=== PATIENT | female | born 1955 | race Caucasian/White ===

== ENCOUNTER → 2017-10-06 14:26 | Outpatient (CLI) | payer OTHER, SELFPAY ==
--- NOTE | 2017-10-06 | DI.US.S_ITS ---
PROCEDURE: US ABDOMEN COMPLETE INDICATIONS: ABNORMAL LIVER FUNCTION TESTS TECHNIQUE: Real-time scanning was performed of the abdominal and retroperitoneal organs, with image documentation. COMPARISON: [facility], CT, ABDOMEN/PELVIS WITH CONTRAST, 01/16/2017, 14:03. FINDINGS: Liver: Liver is diffusely increased in echogenicity. No focal hepatic abnormalities identified. Normal hepatic size. Focal fatty sparing seen within the medial aspect of the posterior left hepatic lobe. Gallbladder: No gallstones identified. Normal gallbladder wall. No pericholecystic fluid. Negative sonographic Shabazz sign. Biliary ducts: Intrahepatic bile ducts are non-dilated. Extrahepatic bile duct caliber measures 7.0 mm. Normal is 6-7 mm or less in diameter, or 10 mm or less post-cholecystectomy. Pancreas: Visualized portions of the pancreas are sonographically normal. Spleen: Spleen is normal in size and homogeneous in echotexture. Kidneys: Kidneys are normal in size and echotexture. Right kidney measures 10.8 cm long; left kidney measures 12.1 cm long. No hydronephrosis or nephrolithiasis. No solid masses. Aorta: 3.3 cm descending abdominal aortic aneurysm not significantly from prior CT scan. Iliacs: Proximal common iliac arteries are normal in caliber at less than 2.5 cm. IVC: Intrahepatic inferior vena cava is patent. Miscellaneous: No free abdominal fluid. IMPRESSION: 1. Increased hepatic echogenicity noted possibly related to hepatic steatosis but other sources of hepatocellular disease cannot be excluded. Recommend clinical correlation. 2. Distal abdominal aortic aneurysm measuring up to 3.3 cm not significantly changed. Dictated by: Cornel BBAIN Interpreted: Jacquelyn Jane MD on 10/06/2017 at 16:08 Approved by: Pacheco Oliver M.D. on 10/06/2017 at 16:23
== END ==
PROVIDERS: PCP Family Medicine; Visit Provider Family Medicine
DX: R79.89 Other specified abnormal findings of blood chemistry (principal); I71.4 Abdominal aortic aneurysm, without rupture
CPT/HCPCS: 76700

== ENCOUNTER → 2017-12-22 14:52 | Outpatient (CLI) | payer OTHER, SELFPAY ==
--- NOTE | 2017-12-22 | DI.MG.S_ITS ---
BILATERAL DIGITAL SCREENING MAMMOGRAM 3D/2D WITH CAD: 12/22/2017 CLINICAL: Routine screening. Comparison is made to exams dated: 03/03/2015 mammogram - [facility], 06/20/2012 mammogram, and 05/24/2010 mammogram - [facility]. The tissue of both breasts is heterogeneously dense. This may lower the sensitivity of mammography. Current study was also evaluated with a Computer Aided Detection (CAD) system. There is a focal asymmetry in the right breast at 11 o'clock middle depth. No other significant masses, calcifications, or other findings are seen in either breast. IMPRESSION: INCOMPLETE: NEEDS ADDITIONAL IMAGING EVALUATION The focal asymmetry in the right breast is indeterminate. Additional views with possible ultrasound are recommended. This exam was interpreted at Station ID: [id number]. NOTE: For mammograms, a report in lay terms will be sent to the patient. Approximately 15% of breast malignancies will not be visualized mammographically. In the management of a palpable breast mass, a negative mammogram must not discourage biopsy of a clinically suspicious lesion. Electronically Signed By: Kym caballero/jo:12/23/2017 09:52:59 letter sent: Additional Imaging Needed ACR BI-RADS Category 0: Incomplete 3340F
== END ==
PROVIDERS: PCP Family Medicine; Visit Provider Family Medicine
DX: Z12.31 Encounter for screening mammogram for malignant neoplasm of breast (principal)
CPT/HCPCS: 77063; 77067

== ENCOUNTER → 2018-01-11 14:44 | Outpatient (CLI) | payer OTHER, SELFPAY ==
--- NOTE | 2018-01-11 | DI.US.S_ITS ---
LIMITED ULTRASOUND OF RIGHT BREAST: 01/11/2018 CLINICAL: Patient returns today to evaluate an asymmetry in the right breast, which resolved with additional diagnostic mammogram views. Comparison is made to exams dated: 01/11/2018 mammogram, 12/22/2017 mammogram, and 03/03/2015 mammogram - [facility]. Real-time and Doppler ultrasound of the right breast upper outer quadrant were performed. Griffith scale images of the real-time examination were reviewed. No underlying breast mass or abnormality is identified. There is no ultrasound correlate for the previously noted focal asymmetry in the right breast at 11 o'clock middle depth seen on comparison screening mammograms, which also resolved on additional diagnostic views performed earlier today. IMPRESSION: NEGATIVE There is no sonographic evidence of malignancy in the imaged portions of the right breast. Return to annual screening mammography is recommended. The patient is advised to monitor her breasts and to return sooner for re-evaluation should she feel anything grow or change. This exam was interpreted at Station ID: [id number]. Electronically Signed By: Henry Em M.D. ecl/:01/11/2018 19:23:42 letter sent: Normal Exam Ultrasound BI-RADS: 1 Negative
--- NOTE | 2018-01-11 | DI.MG.S_ITS ---
UNILATERAL RIGHT DIGITAL DIAGNOSTIC MAMMOGRAM 3D/2D WITH ADDITIONAL VIEWS: 01/11/2018 CLINICAL: Additional evaluation requested from prior study. Comparison is made to exams dated: 03/03/2015 mammogram - [facility], 06/20/2012 mammogram - [facility], and 12/22/2017 mammogram - [facility]. The tissue of right breast is heterogeneously dense. This may lower the sensitivity of mammography. Previously noted focal asymmetry in the right breast at 11 o'clock middle depth seen on comparison screening mammogram resolves with additional views and likely represented superimposition of benign anatomic tissues. No other significant masses, calcifications, or other findings are seen in the breast. IMPRESSION: INCOMPLETE: NEEDS ADDITIONAL IMAGING EVALUATION Previously noted focal asymmetry in the right breast at 11 o'clock middle depth seen on comparison screening mammogram resolves with additional views and likely represented superimposition of benign anatomic tissues. A targeted ultrasound is recommended and will be performed immediately following this exam. This exam was interpreted at Station ID: [id number]. NOTE: For mammograms, a report in lay terms will be sent to the patient. Approximately 15% of breast malignancies will not be visualized mammographically. In the management of a palpable breast mass, a negative mammogram must not discourage biopsy of a clinically suspicious lesion. Electronically Signed By: Henry Em M.D. ecl/:01/11/2018 15:17:13 letter sent: Additional Imaging Needed ACR BI-RADS Category 0: Incomplete 3340F
== END ==
PROVIDERS: PCP Family Medicine; Visit Provider Family Medicine
DX: R92.8 Other abnormal and inconclusive findings on diagnostic imaging of breast (principal)
CPT/HCPCS: 76642; 77065; G0279

== ENCOUNTER → 2019-04-09 11:45 | Outpatient (CLI) | payer OTHER, SELFPAY ==
[2019-04-09 13:50] LABS: Alanine Aminotransferase 23 IU/L (<35); Albumin 4.9 g/dL (3.5-5.0); Albumin Globulin Ratio 1.6 (1.0-2.8); Alkaline Phosphatase 113 U/L (38-126); Aspartate Aminotransferase 31 IU/L (14-36); Bilirubin Total 0.7 mg/dL (0.2-1.3); Bilirubin Unconjugated 0.5 mg/dL (0.0-1.1); Blood Urea Nitrogen 15 mg/dL (7-17); Calcium 10.5 mg/dL (8.4-10.2); Carbon Dioxide 28 mmol/L (22-32); Chloride 98 mmol/L (98-107); Estimated Glomerular Filt Rate > 60.0 mL/min (>60); Globulin 3.1 g/dL (1.7-4.1); Glucose 96 mg/dL (80-110); HEMOLYSIS < 15 (0-50); Potassium 5.2 mmol/L (3.4-5.1); Sodium 139 mmol/L (137-145)
== END ==
PROVIDERS: PCP Student in an Organized Health Care Education/Training Program; Referring Provider Student in an Organized Health Care Education/Training Program; Visit Provider Student in an Organized Health Care Education/Training Program
DX: K76.0 Fatty (change of) liver, not elsewhere classified (principal); I10 Essential (primary) hypertension
CPT/HCPCS: 36415; 80048; 80076

== ENCOUNTER → 2019-08-08 10:10 | Outpatient (CLI) | payer OTHER, SELFPAY ==
[2019-08-08 11:50] LABS: BUN Creatinine Ratio 21.1 (6-22); Blood Urea Nitrogen 12 mg/dL (7-17); Calcium 10.2 mg/dL (8.4-10.2); Carbon Dioxide 32 mmol/L (22-32); Chloride 96 mmol/L (98-107); Cholesterol 186 mg/dL (140-199); Estimated Glomerular Filt Rate > 60.0 mL/min (>60); Glucose 95 mg/dL (80-110); HDL Cholesterol 91 mg/dL (40-60); HEMOLYSIS < 15 (0-50); LDL Cholesterol Calculated 80 mg/dL (<100); Potassium 4.3 mmol/L (3.4-5.1); Sodium 134 mmol/L (137-145); Triglycerides 75 mg/dL (35-150)
[2019-08-08 12:13] LABS: TSH w/ Reflex to FT4 1.54 uIU/mL (0.47-4.68)
[2019-08-08 12:35] LABS: Vitamin B12 535 pg/mL (239-931)
[2019-08-08 16:17] LABS: Vitamin D 25 Hydroxy (D3) 13.6 ng/mL (30.0-100.0)
== END ==
PROVIDERS: PCP Student in an Organized Health Care Education/Training Program; Referring Provider Student in an Organized Health Care Education/Training Program; Visit Provider Student in an Organized Health Care Education/Training Program
DX: Z78.0 Asymptomatic menopausal state (principal); Z91.89 Other specified personal risk factors, not elsewhere classified; I10 Essential (primary) hypertension; R53.83 Other fatigue; T68.XXXA Hypothermia, initial encounter; E78.5 Hyperlipidemia, unspecified
CPT/HCPCS: 36415; 80048; 80061; 82306; 82607; 84443

== ENCOUNTER → 2019-08-16 07:54 | Outpatient (CLI) | payer OTHER, SELFPAY ==
--- NOTE | 2019-08-16 08:03 | DI.ECHO.S_ITS ---
Echocardiogram Report + + :Name: ONEIL DAVALOS Study Date: 08/16/2019 Height: 66 in : :[facility] Weight: 146 lb : : Gender: Female BSA: 1.7 m2 : :: 1955 Age: 64 yrs BP: 125/70 mmHg: :Reason For Study: ABNL EKG : : Performed By: Lorenzo Fabian : :Referring: DERRICK GLOVER : + + Interpretation Summary The left ventricle is normal in size. Left ventricular systolic function is normal without focal wall motion abnormalities. The ejection fraction is estimated to be 60-65%. Diastolic parameters suggest a relaxation abnormality of the left ventricle, consistent with probable normal filling pressures. The right ventricle is normal in size and function. Pulmonary artery pressures cannot be estimated because of the lack of a measurable TR jet velocity. The left atrium is moderately dilated. Right atrial size is normal. There is no significant valvular heart disease. The aortic root is normal size. Procedure: A two-dimensional transthoracic echocardiogram with color flow and Doppler was performed. The study quality was technically adequate. There is no prior echocardiogram noted for this patient. The patient was in normal sinus rhythm during the exam. Left Ventricle: The left ventricle is normal in size. There is normal left ventricular wall thickness. Left ventricular systolic function is normal without focal wall motion abnormalities. The ejection fraction is estimated to be 60-65%. Diastolic parameters suggest a relaxation abnormality of the left ventricle, consistent with probable normal filling pressures. Right Ventricle: The right ventricle is normal in size and function. Atria: The left atrium is moderately dilated. Right atrial size is normal. The interatrial septum is intact with no evidence for an atrial septal defect. Mitral Valve: The mitral valve is normal in structure and function. There is trace mitral regurgitation. Aortic Valve: The aortic valve is trileaflet. The aortic valve is mildly calcified. The aortic valve opens well. There is trace aortic regurgitation. Tricuspid Valve: The tricuspid valve is normal in structure and function. There is a trace or physiologic amount of tricuspid regurgitation. Pulmonary artery pressures cannot be estimated because of the lack of a measurable TR jet velocity. Pulmonic Valve: The pulmonic valve is normal in structure and function. There is no pulmonic valvular regurgitation. There is no significant valvular heart disease. Great Vessels: The aortic root is normal size. The dimensions of the ascending aorta are normal. The pulmonary artery is normal size. The IVC is of normal diameter and collapses greater than 50% with a sniff. This suggests a low right atrial pressure of 3 mm Hg. Pericardium/ Pleura There is no pericardial effusion. There is no pleural effusion. MMode/2D Measurements & Calculations LVIDd: 4.3 cm LVOT diam: 1.9 cm LVIDs: 2.2 cm Ao root diam: 2.6 cm FS: 49.2 % Aortic Jxn: 2.3 cm EPSS: 0.24 cm asc Aorta Diam: 3.0 cm IVSd: 0.90 cm Ao Arch Diam (Prox Trans): 2.5 cm LVPWd: 0.91 cm LV combs. diameter/BSA (cm/m^2): 2.4 LV sys. diameter/BSA (cm/m^2): 1.2 LA dimension: 3.8 cm RA long axis: 4.8 cm LA A2 area: 22.9 cm2 RA area: 16.7 cm2 LA A4 area: 21.3 cm2 RA vol: 49.3 ml LA length (vol): 5.4 cm RA : 28.2 ml/m2 LA vol: 76.4 ml IVC diam: 1.6 cm LA vol index: 43.7 ml/m2 Doppler Measurements & Calculations Ao V2 max: 153.0 cm/sec LVOT Max Yadiel: 123.8 cm/sec Ao V2 mean: 115.3 cm/sec LV V1 max P.1 mmHg Ao max P.4 mmHg LV V1 VTI: 30.1 cm Ao mean P.7 mmHg JEREMIAS(I,D): 2.3 cm2 Ao V2 VTI: 35.1 cm JEREMIAS(V,D): 2.2 cm2 sev ratio: 0.86 JEREMIAS indexed to BSA (cm^2/m^2): 1.3 MV E max yadiel: 74.0 cm/sec PA V2 max: 103.4 cm/sec MV A max yadiel: 87.4 cm/sec PA V2 mean: 75.3 cm/sec MV E/A: 0.85 PA mean P.5 mmHg Med Peak E' Yadiel: 6.0 cm/sec PA pr(Accel): 55.0 mmHg E/E' med: 12.3 Lat Peak E' Yadiel: 7.6 cm/sec E/E' lat: 9.8 E/e' average: 11.0 MV dec time: 0.17 sec SV(LVOT): 82.4 ml Reading Physician:07:07 PM
== END ==
PROVIDERS: PCP Student in an Organized Health Care Education/Training Program; Referring Provider Student in an Organized Health Care Education/Training Program; Visit Provider Student in an Organized Health Care Education/Training Program
DX: R94.31 Abnormal electrocardiogram [ECG] [EKG] (principal); I10 Essential (primary) hypertension
CPT/HCPCS: 93306

== ENCOUNTER → 2019-10-22 15:12 | Outpatient (CLI) | payer OTHER, SELFPAY ==
--- NOTE | 2019-10-22 15:35 | DI.MG.S_ITS ---
Patient Name: ONEIL DAVALOS date: 1955 Sex: F Attending Physician: Nika Indications: Date: 10/22/2019 15:22 At the request of: DERRICK GLOVER Procedure: MM screening mammo BI BILATERAL DIGITAL SCREENING MAMMOGRAM 3D/2D WITH CAD: 10/22/2019 CLINICAL: Routine screening. Comparison is made to exams dated: 01/11/2018 mammogram, 12/22/2017 mammogram, 03/03/2015 mammogram - [facility], and 06/20/2012 mammogram - [facility]. The tissue of both breasts is heterogeneously dense. This may lower the sensitivity of mammography. Current study was also evaluated with a Computer Aided Detection (CAD) system. There are benign calcifications in both breasts. No significant masses, calcifications, or other findings are seen in either breast. There has been no significant interval change. IMPRESSION: BENIGN There is no mammographic evidence of malignancy. A 1 year screening mammogram is recommended. This exam was interpreted at Station ID: [id number]. NOTE: For mammograms, a report in lay terms will be sent to the patient. Approximately 15% of breast malignancies will not be visualized mammographically. In the management of a palpable breast mass, a negative mammogram must not discourage biopsy of a clinically suspicious lesion. Electronically Signed By: Tony nguyen/jo:10/22/2019 18:01:07 letter sent: Normal Exam ACR BI-RADS Category 2: Benign Finding(s) 3342F
== END ==
PROVIDERS: PCP Student in an Organized Health Care Education/Training Program; Referring Provider Student in an Organized Health Care Education/Training Program; Visit Provider Student in an Organized Health Care Education/Training Program
DX: Z12.31 Encounter for screening mammogram for malignant neoplasm of breast (principal); Z13.820 Encounter for screening for osteoporosis; Z78.0 Asymptomatic menopausal state; Z91.89 Other specified personal risk factors, not elsewhere classified; F17.200 Nicotine dependence, unspecified, uncomplicated
CPT/HCPCS: 77063; 77067; 77080

== ENCOUNTER → 2020-12-21 11:18 | Outpatient (CLI) | payer OTHER, SELFPAY ==
[2020-12-21 12:27] LABS: Hematocrit 42.9 % (36-46); Mean Corpuscular Hemoglobin 32.1 PG (26-34); Mean Corpuscular Volume 91.7 fL (80-100); Platelet Count 189 X10^3/uL (150-400); Red Blood Cell Count 4.68 X10^6/uL (4.0-5.2); Red Cell Distribution Width 12.8 % (11.6-14.8); White Blood Cell Count 6.1 X10^3/uL (4.5-11.0)
[2020-12-21 12:50] LABS: Alanine Aminotransferase 17 IU/L (<35); Albumin 4.9 g/dL (3.5-5.0); Albumin Globulin Ratio 1.6 (1.0-2.8); Alkaline Phosphatase 133 U/L (38-126); Aspartate Aminotransferase 25 IU/L (14-36); Bilirubin Total 0.6 mg/dL (0.2-1.3); Blood Urea Nitrogen 16 mg/dL (7-17); Calcium 10.5 mg/dL (8.4-10.2); Carbon Dioxide 28 mmol/L (22-32); Chloride 96 mmol/L (98-107); Estimated Glomerular Filt Rate > 60.0 mL/min (>60); Glucose 94 mg/dL (80-110); HEMOLYSIS < 15 (0-50); Potassium 4.7 mmol/L (3.4-5.1); Sodium 135 mmol/L (137-145); Total Protein 7.9 g/dL (6.3-8.2)
[2020-12-21 13:01] LABS: Vitamin D 25 Hydroxy (D3) 45.3 ng/mL (30.0-100.0)
== END ==
PROVIDERS: PCP Student in an Organized Health Care Education/Training Program; Referring Provider Student in an Organized Health Care Education/Training Program; Visit Provider Student in an Organized Health Care Education/Training Program
DX: E55.9 Vitamin D deficiency, unspecified (principal); E87.1 Hypo-osmolality and hyponatremia; I10 Essential (primary) hypertension; K76.0 Fatty (change of) liver, not elsewhere classified
CPT/HCPCS: 36415; 80053; 82306; 85027

== ENCOUNTER → 2021-10-25 10:17 | Outpatient (CLI) | payer OTHER, SELFPAY ==
--- NOTE | 2021-10-25 10:22 | DI.MG.S_ITS ---
BILATERAL DIGITAL SCREENING MAMMOGRAM 3D/2D WITH CAD: 10/25/2021 CLINICAL: Routine screening. Comparison is made to exams dated: 10/22/2019 mammogram, 12/22/2017 mammogram, and 03/03/2015 mammogram - [facility]. Both breasts are heterogeneously dense, which may obscure small masses (category c / 51-75% glandular tissue). Current study was also evaluated with a Computer Aided Detection (CAD) system. There are benign calcifications in both breasts. No significant masses, calcifications, or other findings are seen in either breast. There has been no significant interval change. IMPRESSION: BENIGN There is no mammographic evidence of malignancy. A 1 year screening mammogram is recommended. Based on the Tyrer Cuzick model (a risk assessment model) the patient's lifetime risk is 11.1% and her 10 year risk is 5.9%. According to the ACR, ACS, and NCCN guidelines, an annual breast MRI exam along with mammogram is recommended if the patient's lifetime risk is 20% or greater. This exam was interpreted at Station ID: [id number]. NOTE: For mammograms, a report in lay terms will be sent to the patient. Approximately 15% of breast malignancies will not be visualized mammographically. In the management of a palpable breast mass, a negative mammogram must not discourage biopsy of a clinically suspicious lesion. Electronically Signed By: Jason Lloyd M.D., jr/jo:10/25/2021 11:18:16 letter sent: Normal Exam ACR BI-RADS Category 2: Benign Finding(s) 3342F
--- NOTE | 2021-10-25 10:22 | DI.US.S_ITS ---
PROCEDURE: US ABD AORTA ANEURYSM SCREEN INDICATIONS: AAA TECHNIQUE: Real time scanning was performed of the aorta and iliac arteries, with image documentation. COMPARISON: [facility], CT, ABDOMEN/PELVIS WITH CONTRAST, 01/16/2017, 14:03. FINDINGS: Aorta: Proximal aortic diameter measures 2.3 cm. Mid-aorta measures 1.5 cm. Distal aortic diameter is 4.9 cm AP by 11.8 cm craniocaudal x 5.6 transverse. This previously measured approximately 3.6 cm AP x 10.2 cm craniocaudal by 3.8 cm transverse. Iliac arteries: Right common iliac artery measures 1.3 cm. Left common iliac artery measures 0.9 cm. IMPRESSION: Aneurysmal dilation is present in the distal aorta. There is apparent mild interval increase compared to prior exam, although noting prior exam was a CT in 2017. Given interval increase in size, 6 month ultrasound follow-up is recommended. Dictated by: Hellen Hoffman M.D. on 10/25/2021 at 14:27 Approved by: Hellen Hoffman M.D. on 10/25/2021 at 14:32
[2021-10-25 13:54] LABS: Blood Urea Nitrogen 9 mg/dL (7-17); Calcium 9.6 mg/dL (8.4-10.2); Carbon Dioxide 28 mmol/L (22-32); Chloride 102 mmol/L (98-107); Cholesterol 164 mg/dL (140-199); Estimated Glomerular Filt Rate > 60 mL/min (>60); Glucose 82 mg/dL (80-110); HDL Cholesterol 63 mg/dL (40-60); HEMOLYSIS < 15 (0-50); LDL Cholesterol Calculated 91 mg/dL (<100); Potassium 4.6 mmol/L (3.4-5.1); Sodium 137 mmol/L (137-145); Triglycerides 50 mg/dL (35-150)
[2021-10-25 15:48] LABS: Hep C Virus Ab w/Reflex Quant NEGATIVE s/c (NEGATIVE)
== END ==
PROVIDERS: PCP Student in an Organized Health Care Education/Training Program; Referring Provider Internal Medicine; Visit Provider Internal Medicine
DX: Z78.0 Asymptomatic menopausal state (principal); Z12.31 Encounter for screening mammogram for malignant neoplasm of breast; E78.5 Hyperlipidemia, unspecified; I71.4 Abdominal aortic aneurysm, without rupture; I10 Essential (primary) hypertension; Z11.59 Encounter for screening for other viral diseases; M85.89 Other specified disorders of bone density and structure, multiple sites
CPT/HCPCS: 36415; 76706; 77063; 77067; 77080; 80048; 80061; 86803

== ENCOUNTER → 2021-11-01 09:27 | Outpatient (CLI) | payer OTHER, SELFPAY ==
[2021-11-02 12:47] LABS: Fecal Immunochemical Test Positive (Negative)
== END ==
PROVIDERS: PCP Student in an Organized Health Care Education/Training Program; Referring Provider Student in an Organized Health Care Education/Training Program; Visit Provider Student in an Organized Health Care Education/Training Program
DX: Z12.11 Encounter for screening for malignant neoplasm of colon (principal)
CPT/HCPCS: 82274

== ENCOUNTER → 2021-12-08 09:38 | Outpatient (CLI) | payer OTHER, SELFPAY ==
[2021-12-08 11:00] LABS: COVID19 -Nasal RAPID Negative (Negative)
== END ==
PROVIDERS: PCP Student in an Organized Health Care Education/Training Program; Visit Provider Surgery
DX: Z20.822 Contact with and (suspected) exposure to COVID-19 (principal); Z01.812 Encounter for preprocedural laboratory examination
CPT/HCPCS: 87635; C9803

== ENCOUNTER 2021-12-09 11:51 | Day surgery (SDC) | payer OTHER, SELFPAY ==
[2021-12-09] VITALS (9 sets, daily range): BP systolic 90–123; BP diastolic 48–88; PULSE 75–102; RESP 15–18; TEMP 36.4–36.9; O2SAT 97–100; BMI 23.3
--- NOTE | 2021-12-09 | PATH_ITS ---
[facility] Accession Number: [id number] . 01 Material submitted: . PART A: ileo-cecal valve - ILEOCECAL VALVE POLYP PART B: colon - ASCENDING COLON POLYP PART C: colon - TRANSVERSE COLON POLYP PART D: sigmoid colon - SIGMOID POLYPS . 01 Diagnosis: A. Ileocecal Valve Polyp, Biopsy: Tubular adenoma. . B. Ascending Colon Polyp, Biopsy: Tubular adenoma. . C. Transverse Colon Polyp, Biopsy: Tubular adenoma. . D. Sigmoid Polyps, Biopsy: Tubulovillous adenoma. No high-grade dysplasia or malignancy. [facility] 12/14/2021 1504 Local . 01 Electronically signed: . Sarahy Navarrete MD, Pathologist NPI- [id number] . 01 Gross description: . Part A: ILEOCECAL VALVE POLYP: Received in formalin are multiple fragment(s) of mccarthy, soft tissue measuring 0.1 x 0.1 x 0.1 cm to 0.3 x 0.3 x 0.3 cm submitted entirely in 1 cassette(s) Part B: ASCENDING COLON POLYP: Received in formalin are multiple fragment(s) of mccarthy, soft tissue measuring 0.1 x 0.1 x 0.1 cm to 0.3 x 0.3 x 0.2 cm submitted entirely in 1 cassette(s) Part C: TRANSVERSE COLON POLYP: Received in formalin is 1 fragment(s) of mccarthy, soft tissue measuring 0.4 x 0.2 x 0.2 cm submitted entirely in 1 cassette(s) Part D: SIGMOID POLYPS: Received in formalin are 2 fragment(s) of mccarthy, soft tissue measuring 0.6 x 0.3 x 0.3 cm to 0.9 x 0.8 x 0.8 cm submitted entirely in 1 cassette(s) /[facility] 12/13/2021 1840 Local . 01 Pathologist provided ICD-10: D12.0, D12.2, D12.3, D12.5 . 01 CPT . 446951, 697245, 062106, 111121 Specimen Comment: A courtesy copy of this report has been sent to [phone] Performed at: 01 [facility] [address] [place] [address], [place], [place] [id number] MD Roland Gibbons MD Phone: [phone]
[2021-12-09] MEDS: LACTATED RINGERS 1,000 ML 42 ML IV (12:35)
--- NOTE | 2021-12-09 13:28 | PM.HP.1 ---
History of Present Illness History of Present Illness Date Patient Seen: 12/09/21 Time Patient Seen: 13:28 Chief complaint: SDC Narrative: Ismael is 66-year-old woman who is here for a positive fit test. She had attempted colonoscopy many years ago but it was aborted due to diverticulitis according to her. She has sort of a baseline level of abdominal pain. Patient History Medical History (Updated 12/09/21 @ 13:29 by Benito Conrad MD) Chlamydia (~1974) Depression (~1998) Diverticular disease (~2011) Fatty liver Genital warts (~1974) History of HPV infection (~1974) Hyponatremia Measles (~1964) Skin cancer (melanoma) (~2017) Family & Social History Family History (Updated 07/08/18 @ 21:35 by Kenya Garnica) Father AAA (abdominal aortic aneurysm) Hypertension Mother Mental health problem Brother Myelofibrosis Sister Rheumatoid arthritis with polymyositis Tobacco & Substance use: Smoking Status Current every day smoker alcohol intake current alcohol intake frequency 0-2 drinks per day Substance Use Type marijuana Meds Home Medications and Allergies Home Medications Medication Instructions Recorded Confirmed Type simvastatin 20 mg tablet 20 mg PO BEDTIME #90 tabs 12/21/20 12/09/21 Rx mirtazapine 15 mg tablet 15 mg PO DAILY #90 tabs 10/25/21 12/09/21 Rx aspirin 325 mg DAILY 12/09/21 12/09/21 History Allergies Allergy/AdvReac Type Severity Reaction Status Date / Time No Known Drug Allergies Allergy Verified 12/09/21 12:02 Exam Vital Signs (past 8 hours): - 12/09/21 12:17 Temperature 97.7 F Pulse Rate 102 H Respiratory Rate 16 Blood Pressure 123/85 Pulse Oximetry 100 Oxygen Delivery Method Room Air Oxygen Delivery Method Room Air Const General: No acute distress Assessment & Plan Assessment and plan (1) Positive FIT (fecal immunochemical test): Status: Acute Plan 66-year-old woman who is here for a positive fit test. We reviewed the risks and benefits of colonoscopy and she would like to proceed. Time Spent With Patient Critical Care time: I spent a total of [] minutes of critical care time on this patient's care today; this time is exclusive of procedural time.
--- NOTE | 2021-12-09 15:16 | PM.OP.COLON ---
Operative Date/Time/Diagnoses Date of procedure: 12/09/21 Time of procedure: 15:16 Pre-op diagnosis: Positive fit test Post-op diagnosis: same Procedure & Clinicians Study performed: Colonoscopy Same procedure as scheduled: Yes Surgeon: Benito Conrad Procedure Notes Procedure in detail: Surgeon: Benito Conrad MD Anesthesia: MAC by Dr. Suarez Procedure: The patient was brought to the endoscopy suite, placed in left lateral decubitus position. The patient was connected to monitoring devices. A time-out was performed. Sedation was administered. Once the patient was adequately sedated, a digital rectal exam was performed and was normal. The scope was then inserted and advanced with difficulty. She had rather significant sigmoid diverticulosis and some narrow tight turns in the sigmoid colon which were difficult to navigate due to the extensive diverticulosis however we were eventually able to safely pass into the descending colon. We then were able to easily reach the cecum where the appendiceal orifice was identified and photographed. The scope was then slowly withdrawn over greater than 6 minutes. The mucosa was thoroughly inspected. There appeared to be a 0.2 cm flat polyp just distal to the ileocecal valve which was removed piecemeal with a combination of Jumbo forceps and cold snare. There was a flat 2 cm polyp in the ascending colon which was also removed piecemeal using a saline lift, hot snare, cold snare and Jumbo forceps. Tattoo ink was injected adjacent to the biopsy site. Next there was a 5 mm polyp in the transverse colon removed with Jumbo forceps. There was a pedunculated 2 cm polyp on a stalk in the sigmoid colon which was removed with hot snare and removed with a Wayne net. There were other areas in the sigmoid colon that appeared somewhat contused but these appeared to be redundant folds of mucosa, potentially indicating form of chronic smoldering diverticulitis. The scope was retroflexed in the rectum. There were some internal hemorrhoids. The scope was straightened and removed. The patient was awakened and brought to recovery. Scope withdrawal time: 80 minutes Sedation time: 96 minutes EBL: 15 mL Findings: Extensive sigmoid diverticulosis and possibly smoldering diverticulitis, 1.2 cm flat polyp just distal to the ileocecal valve, 2.0 cm flat polyp in the ascending colon, 5 mm transverse colon polyp, 2 cm pedunculated sigmoid colon polyp Post-procedure Recommendations: Will call with biopsy results Disposition: PACU
== END 2021-12-09 16:06 | disposition home or self-care (01) ==
PROVIDERS: PCP Student in an Organized Health Care Education/Training Program; Referring Provider Surgery; Visit Provider Surgery
PROC: 0DJD8ZZ Inspection of Lower Intestinal Tract, Via Natural or Artificial Opening Endoscopic (ICD-10-PCS; CPT 45378; principal; 2021-12-09 13:00)
DX: R19.5 Other fecal abnormalities (principal); K57.30 Diverticulosis of large intestine without perforation or abscess without bleeding; D12.0 Benign neoplasm of cecum; D12.2 Benign neoplasm of ascending colon; D12.3 Benign neoplasm of transverse colon; D12.5 Benign neoplasm of sigmoid colon
CPT/HCPCS: 45381; 45385; 45380; 99152; 99153; J2704; J3010

== ENCOUNTER 2021-12-16 10:02 | Emergency (ER) | payer OTHER, SELFPAY ==
[2021-12-16] VITALS (42 sets, daily range): BP systolic 85–154; BP diastolic 47–90; PULSE 85–139; RESP 15–28; TEMP 36.1; O2SAT 96–100; BMI 22.7
[2021-12-16 10:56] LABS: Add Manual Diff / Slide Review NO; Basophils Absolute Auto 0 /uL (0-100); Basophils Percent Auto 0.1 % (0-2); Eosinophils Absolute Auto 0 /uL (0-450); Eosinophils Percent Auto 0.1 % (2-4); Lymphocytes Absolute Auto 1800 /uL (1100-4500); Lymphocytes Percent Auto 7.5 % (25-40); Mean Corpuscular HGB Conc 34.4 % (30-36); Mean Corpuscular Hemoglobin 30.7 PG (26-34); Mean Corpuscular Volume 89.3 fL (80-100); Monocytes Absolute Auto 2500 /uL (0-900); Monocytes Percent Auto 10.6 % (3-14); Neutrophils Absolute Auto 19500 /uL (1500-7000); Neutrophils Percent Auto 81.7 % (50-75); Platelet Count 210 X10^3/uL (150-400); Red Blood Cell Count 3.25 X10^6/uL (4.0-5.2); Red Cell Distribution Width 12.7 % (11.6-14.8); White Blood Cell Count 23.9 X10^3/uL (4.5-11.0)
[2021-12-16 11:00] LABS: INR 1.2 (0.9-1.3); Prothrombin Time 14.1 SECONDS (10.1-12.7)
[2021-12-16 11:03] LABS: PTT Partial Thromboplastin Tim 25 SECONDS (26-36)
[2021-12-16 11:05] LABS: Alanine Aminotransferase 16 IU/L (<35); Albumin 4.2 g/dL (3.5-5.0); Albumin Globulin Ratio 1.2 (1.0-2.8); Alkaline Phosphatase 105 U/L (38-126); Aspartate Aminotransferase 24 IU/L (14-36); BUN Creatinine Ratio 21.7 (6-22); Bilirubin Total 0.7 mg/dL (0.2-1.3); Blood Urea Nitrogen 18 mg/dL (7-17); Calcium 9.3 mg/dL (8.4-10.2); Carbon Dioxide 26 mmol/L (22-32); Chloride 92 mmol/L (98-107); Estimated Glomerular Filt Rate > 60 mL/min (>60); Globulin 3.6 g/dL (1.7-4.1); Glucose 110 mg/dL (80-110); HEMOLYSIS < 15 (0-50); Lipase 79 U/L (23-300); Potassium 3.7 mmol/L (3.4-5.1); Sodium 129 mmol/L (137-145); Total Protein 7.8 g/dL (6.3-8.2)
--- NOTE | 2021-12-16 13:03 | PC.NURSE ---
Pt HR noted sinus tachycardia in the 140's on telemetry post ambulation, pt denies symptoms, recovers to [address] after a couple [address]. Dr. Mcmanus notified.
--- NOTE | 2021-12-16 13:21 | DI.CT.S_ITS ---
PROCEDURE: CT ABDOMEN PELVIS W CON INDICATIONS: abd pain, had colonscopy TECHNIQUE: After the administration of oral and IV contrast, axial sections were acquired from the lung bases to the pubic symphysis. Coronal and sagittal reformats were performed. For radiation dose reduction, the following was used: automated exposure control, adjustment of mA and/or kV according to patient size. COMPARISON: [facility], US, US ABD AORTA ANEURYSM SCREEN, 10/25/2021, 11:02. [facility], CT, CT ANGIO CHEST PE PROTOCOL, 12/16/2021, 13:54. FINDINGS: Image quality: Excellent. Lung bases: Small to moderate left pleural effusion with left basilar atelectasis. Heart: No significant findings. ABDOMEN: Liver: Unremarkable. Gallbladder: Unremarkable. Biliary ducts: Unremarkable. Pancreas: Unremarkable. Spleen: Unremarkable. Adrenal Glands: There is a large mass in the left adrenal measuring 11.0 x 6.9 cm. A smaller mass is seen in the right adrenal gland measuring 5.3 x 3.8 cm. The findings are most likely secondary to adrenal metastases. Kidneys and Ureters: Kidneys are normal in size and enhancement. There is left perinephric stranding and fluid collection, presumably related to the large left adrenal mass. No stones or hydronephrosis. Stomach and Bowel: Stomach, small bowel loops, and colon are normal in caliber. Diverticulosis without acute diverticulitis. Peritoneum: There is a small amount of intraperitoneal fluid. No free air. Ventral Wall: No hernia. Abdominal Nodes: There is mild retroperitoneal adenopathy suspicious for metastasis. For example, there is a 1.2 x 1.5 cm left para-aortic lymph node. Vessels: There is a large infrarenal abdominal aortic aneurysm measuring 5.1 x 5.2 cm extending to the aortic bifurcation. Severe atherosclerotic calcifications of aorta and iliac arteries. PELVIS: Pelvic Organs: Unremarkable. Bladder: Bladder wall is mildly thickened. Pelvic Nodes: No enlarged lymph nodes. Miscellaneous: No inguinal hernias are seen. Bones: Moderate levoscoliosis. Degenerative changes in lumbar spine IMPRESSION: 1. A huge left adrenal mass and a large right adrenal mass, most likely secondary to metastatic disease. Primary adrenal neoplasm is a less likely differential diagnosis. 2. Retroperitoneal lymphadenopathy consistent with metastasis. 3. Diverticulosis without acute diverticulitis. 4. Left perinephric stranding and fluid collection, presumably related to the large left adrenal mass. 5. Infrarenal abdominal aortic aneurysm measuring 5.1 x 5.2 cm. 6. A small to moderate amount of ascites. The result was discussed with Dr. Mcmanus. Dictated by: Bernice Reyna M.D. on 12/16/2021 at 15:23 Approved by: Bernice Reyna M.D. on 12/16/2021 at 15:34
--- NOTE | 2021-12-16 13:31 | DI.CT.S_ITS ---
PROCEDURE: CT ANGIO CHEST PE PROTOCOL INDICATIONS: abd pain, chest pain, recent scope TECHNIQUE: After the administration of intravenous contrast, 2 mm thick sections acquired from the pulmonary apices to the posterior costophrenic angles. 3-dimensional maximum intensity projection (MIP) coronal and sagittal reformats were then acquired through the thorax. For radiation dose reduction, the following was used: automated exposure control, adjustment of mA and/or kV according to patient size. COMPARISON: None. FINDINGS: Image quality: Excellent. Pulmonary arteries: There is occlusion of the right upper lobe pulmonary artery by a large central mass. Rest of the pulmonary arteries are normal in size, and demonstrate no intraluminal filling defects to suggest central pulmonary embolism. Lungs and pleura: There is a right upper lobe mass anterior medially measuring 3.7 x 2.5 cm, suspicious for primary lung cancer. There is a endobronchial component within the right upper lobe bronchus, which is obstructed. There is encasement and occlusion of the right upper lobe pulmonary artery by tumor compression or invasion. There is airspace opacity in the right upper lobe, likely secondary to postobstructive pneumonia. A 1.3 cm diameter cavitary nodule is seen in the right lower lobe suspicious for pulmonary metastasis. There is a small to moderate left pleural effusion. Left basilar atelectasis is present. There is air lucency in the left lower lobe anterior medially, at the secondary to air trapping or lobar emphysema. Mediastinum: Heart size is normal, without pericardial effusion. There is moderate coronary artery calcification. 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 For example, there is a right hilar gretta mass measuring 2.2 x 1.9. There is a 1.4 x 2.5 cm precarinal lymph node. A 3.0 x 2.4 cm subcarinal lymph node is identified. Thoracic aorta is normal in caliber and enhancement. Esophagus is normal in caliber, without hiatal hernia. Bones and chest wall: No suspicious bony lesions. Ribs and thoracic spine appear intact throughout. Thyroid gland is unremarkable. No axillary or supraclavicular adenopathy. Abdomen: Bilateral adrenal masses are present. Please see separate CT abdomen and pelvis report for detail. IMPRESSION: 1. No evidence for pulmonary embolism. 2. Occlusion of right upper lobe pulmonary artery by a large central lung mass. 3. A 3.7 x 2.5 cm mass in the right upper lobe, highly suspicious for primary lung cancer. There is an endobronchial component extending into the right upper lobe bronchus. The mass is seen encasing the right upper lobe pulmonary artery causing right upper lobe pulmonary artery occlusion. 4. A 1.3 cm cavitary nodule in the right lower lobe, suspicious for pulmonary metastasis. 5. Moderate left pleural effusion. There is left basilar atelectasis. 6. 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 Dictated by: Bernice Reyna M.D. on 12/16/2021 at 15:07 Approved by: Bernice Reyna M.D. on 12/16/2021 at 15:22
--- NOTE | 2021-12-16 13:32 | ED_ITS ---
HPI - Abdominal Pain <Rachel Ham DO - Last Filed: 12/20/21 07:26> General Chief Complaint: Abdominal Pain Stated Complaint: sent by [facility], pain in left side, just had colonosco Time Seen by Provider: 12/16/21 13:20 Source: patient Mode of arrival: Ambulatory Limitations: no limitations History of Present Illness HPI narrative: This is a 66 year old female on aspirin daily, mirtazapine for mood and simvastatin for dyslipidemia with complaint of left-sided abdominal pain that has been increasing over time and now radiates from her left abdomen into her left chest and left shoulder. Patient states she is been afebrile no rigors or chills. She states she does have pain with inspiration as well as some shortness of breath. She is not had any nausea or vomiting. She denies any jose luis rrhea constipation. No black or bloody stools. She states pain seems to be sort of spasmodic and comes and goes she feels like there is a ball of air inside of her. Patient denies dysuria, urgency or frequency. She had her colonoscopy last December 09 she was told she had smoldering di verticulitis and this was done because she had positive fit testing or stool occult. She denies other surgeries or interventions. She does use a half pack tobacco daily, she drinks 3 alcoholic light beers daily, she uses marijuana but no IV drugs. Dr. Tirado is her primary care and Dr. Conrad performed her colonscopy. Related Data Previous Rx's Medication Instructions Recorded simvastatin 20 mg tablet 20 mg PO BEDTIME #90 tabs 12/21/20 mirtazapine 15 mg tablet 15 mg PO DAILY #90 tabs 10/25/21 Allergies Allergy/AdvReac Type Severity Reaction Status Date / Time No Known Drug Allergies Allergy Verified 12/16/21 10:19 Review of Systems <Rachel Ham DO - Last Filed: 12/20/21 07:26> Review of Systems ROS Unobtainable: All systems reviewed & are unremarkable except as noted in HPI and below Patient History <Rachel Ham DO - Last Filed: 12/20/21 07:26> Medical History Chlamydia (~1974) Depression (~1998) Diverticular disease (~2011) Fatty liver Genital warts (~1974) History of HPV infection (~1974) Hyponatremia Measles (~1964) Skin cancer (melanoma) (~2018) Family History Father AAA (abdominal aortic aneurysm) Hypertension Mother Mental health problem Brother Myelofibrosis Sister Rheumatoid arthritis with polymyositis Social History Smoking Status: Current every day smoker alcohol intake: current Smoking Status: Current every day smoker alcohol intake frequency: 3 or more drinks per day Substance Use Type: marijuana Exam <Rachel Ham DO - Last Filed: 12/20/21 07:26> Narrative Exam Narrative: GENERAL: Alert and oriented x three, female in mild distress HEENT: Head normocephalic, atraumatic, EOMI, pupils reactive, face symmetric, moist mucous membranes NECK: Supple, full range of motion CARDIOVASCULAR: Slightly tachycardic but Regular rate and rhythm without murmurs, rubs or gallops. No JVD. RESPIRATORY: Breath sounds equal bilaterally, no wheezes rales or rhonchi. ABDOMEN: Soft, very mild left lower quadrant. Nondistended. Normoactive bowel sounds all 4 quadrants. No guarding or rebound, rigidity, no mass : No CVA tenderness EXTREMITIES: Normal range of motion, no clubbing or edema. Neurovascularly intact NEUROLOGICAL: Cranial nerves II through XII grossly intact. Moving all extremities SKIN: Warm, dry, no petechiae, no rashes or lesions. Initial Vital Signs Initial Vital Signs: Vital Signs Temperature 96.9 F L 12/16/21 10:17 Pulse Rate 99 H 12/16/21 10:17 Respiratory Rate 15 12/16/21 10:17 Blood Pressure 124/62 12/16/21 10:17 Pulse Oximetry 99 12/16/21 10:17 Oxygen Delivery Method 12/16/21 10:17 <Goran Bain MD - Last Filed: 12/18/21 06:19> Initial Vital Signs Initial Vital Signs: Vital Signs Temperature 96.9 F L 12/16/21 10:17 Pulse Rate 99 H 12/16/21 10:17 Respiratory Rate 15 12/16/21 10:17 Blood Pressure 124/62 12/16/21 10:17 Pulse Oximetry 99 12/16/21 10:17 Oxygen Delivery Method 12/16/21 10:17 <Salome Seals MD - Last Filed: 12/18/21 07:25> Initial Vital Signs Initial Vital Signs: Vital Signs Temperature 96.9 F L 12/16/21 10:17 Pulse Rate 99 H 12/16/21 10:17 Respiratory Rate 15 12/16/21 10:17 Blood Pressure 124/62 12/16/21 10:17 Pulse Oximetry 99 12/16/21 10:17 Oxygen Delivery Method 12/16/21 10:17 Course <Rachel Ham DO - Last Filed: 12/20/21 07:26> Orders Ordered: Discontinued Medications Atorvastatin Calcium (Atorvastatin 20 Mg Tablet) 20 mg PO DAILY [facility] Last Admin: 12/17/21 09:21 Dose: Not Given Documented By: MIKEL Piperacillin Sod/Tazobactam (Sod 4.5 gm/ Sodium Chloride) 100 mls @ 200 mls/hr IV NOW ONE Stop: 12/16/21 13:22 Last Infusion: 12/16/21 16:03 Dose: 0 mls/hr Documented By: Admin: 12/16/21 15:25 Dose: 200 mls/hr Documented By: HUDSON Sodium Chloride (Normal Saline 0.9%) 1,779 mls @ 593 mls/hr 30 ml/kg infuse over 3 hr (1779 ml) IV NOW ONE Stop: 12/16/21 16:20 Last Infusion: 12/16/21 17:56 Dose: 0 mls/hr Documented By: Admin: 12/16/21 14:12 Dose: 593 mls/hr Documented By: HUDSON Piperacillin Sod/Tazobactam (Sod 4.5 gm/ Sodium Chloride) 100 mls @ 25 mls/hr IV Q8H [facility] Last Infusion: 12/17/21 03:03 Dose: 0 mls/hr Documented By: Admin: 12/16/21 23:00 Dose: 25 mls/hr Documented By: HUDSON Piperacillin Sod/Tazobactam (Sod 3.375 gm/ Sodium Chloride) 100 mls @ 25 mls/hr IV Q8H [facility] Last Infusion: 12/18/21 02:39 Dose: 0 mls/hr Documented By: Admin: 12/17/21 22:25 Dose: 25 mls/hr Documented By: Infusion: 12/17/21 19:53 Dose: 0 mls/hr Documented By: Admin: 12/17/21 15:41 Dose: 25 mls/hr Documented By: Infusion: 12/17/21 12:26 Dose: 0 mls/hr Documented By: Admin: 12/17/21 08:11 Dose: 25 mls/hr Documented By: MIEKL Sodium Chloride (Normal Saline 0.9%) 1,000 mls @ 1,000 mls/hr IV BOLUS ONE Stop: 12/17/21 10:31 Last Infusion: 12/17/21 12:26 Dose: 0 mls/hr Documented By: Admin: 12/17/21 10:19 Dose: 1,000 mls/hr Documented By: MIKEL Ketorolac Tromethamine (Ketorolac 30 Mg/Ml Vial) 15 mg IV NOW ONE Stop: 12/16/21 13:32 Last Admin: 12/16/21 14:08 Dose: 15 mg Documented By: HUDSON Mirtazapine (Mirtazapine 15 Mg Tablet) 15 mg PO DAILY [facility] Last Admin: 12/17/21 09:30 Dose: 15 mg Documented By: MIKEL Morphine Sulfate (Morphine 4 Mg/Ml Inj) 4 mg IV NOW ONE Stop: 12/16/21 18:30 Last Admin: 12/16/21 19:01 Dose: 4 mg Documented By: HUDSON Morphine Sulfate (Morphine 4 Mg/Ml Inj) 4 mg IV NOW ONE Stop: 12/17/21 20:53 Last Admin: 12/17/21 21:01 Dose: 4 mg Documented By: HUDSON Ondansetron HCl (Ondansetron 4 Mg/2 Ml Inj) 4 mg IV NOW ONE Stop: 12/16/21 18:30 Last Admin: 12/16/21 19:01 Dose: 4 mg Documented By: HUDSON Ondansetron HCl (Ondansetron 4 Mg/2 Ml Inj) 4 mg IV NOW ONE Stop: 12/17/21 20:54 Last Admin: 12/17/21 21:01 Dose: 4 mg Documented By: HUDSON Consultations Consultation #1: Dr. Riley [facility]. No acute surgical intervention. Can follow up office but cancer workup takes precedence. No bleed. Awaiting callback from [facility] medicine or oncology. Consultation #2: Dr. Dugan oncology at [place], can do ED to ED transfer if emergent. Otherwise follow up outpatient. Consultation #3: Dr. Hoang vascular at [place]: no surgical intervention until prognosis from oncology. Dr. Jensen hospitalist triage at [place], would recommend trying larger facilities. Needs inpatient endocrinology and they do not have. Vital Signs Vital signs: Vital Signs - 8 hr 12/18/21 05:29 12/17/21 23:30 12/18/21 00:00 Temperature 98.5 F Pulse Rate 78 Respiratory Rate 19 Blood Pressure 133/63 Pulse Oximetry 95 12/18/21 00:00 12/18/21 00:30 12/18/21 01:00 Temperature Pulse Rate 85 80 Respiratory Rate 20 18 Blood Pressure 101/59 L Pulse Oximetry 96 95 12/18/21 01:00 12/18/21 01:35 12/18/21 01:37 Temperature Pulse Rate 126 H 130 H Respiratory Rate 19 Blood Pressure 116/54 L Pulse Oximetry 96 92 12/18/21 01:37 12/18/21 02:00 12/18/21 02:30 Temperature Pulse Rate 88 86 131 H Respiratory Rate 22 27 H 21 Blood Pressure Pulse Oximetry 98 96 96 12/18/21 03:00 12/18/21 03:30 12/18/21 04:00 Temperature Pulse Rate 78 73 Respiratory Rate 19 19 Blood Pressure 96/52 L Pulse Oximetry 96 95 12/18/21 04:00 12/18/21 04:30 12/18/21 05:00 Temperature Pulse Rate 77 79 79 Respiratory Rate 21 19 18 Blood Pressure Pulse Oximetry 95 95 95 12/18/21 05:25 12/18/21 05:26 Temperature Pulse Rate 68 Respiratory Rate 20 Blood Pressure 89/53 L Pulse Oximetry 95 <Goran Bain MD - Last Filed: 12/18/21 06:19> Course Course Narrative: 7:00 p.[address].. Sign out from dr ham, patient on [facility] see waiting list for multidisciplinary service needs. Including Nephrology Oncology Endocrinology and vascular surgery. Patient and family where will likely be boarding tonight to wait for bed. December 17, 2021 at 7:00 a.m.. Sign out to Dr. Duckworth. Patient on the [facility] lists waiting for services including Oncology Nephrology Endocrinology vascular surgery. December 17, 2021 at 7:00 p.m.. Sign out from Dr. Duckworth. Patient may be able to be transferred to [facility]. However at this time patient still on waiting list on multiple hospital facilities. 8:47 p.m.. I spoke with Dr. Jimenez, pulmonary services with [facility]. She will follow and see patient tomorrow if admitted to hospitalist over there. Orders Ordered: Discontinued Medications Atorvastatin Calcium (Atorvastatin 20 Mg Tablet) 20 mg PO DAILY [facility] Last Admin: 12/17/21 09:21 Dose: Not Given Documented By: MIKEL Piperacillin Sod/Tazobactam (Sod 4.5 gm/ Sodium Chloride) 100 mls @ 200 mls/hr IV NOW ONE Stop: 12/16/21 13:22 Last Infusion: 12/16/21 16:03 Dose: 0 mls/hr Documented By: Admin: 12/16/21 15:25 Dose: 200 mls/hr Documented By: HUDSON Sodium Chloride (Normal Saline 0.9%) 1,779 mls @ 593 mls/hr 30 ml/kg infuse over 3 hr (1779 ml) IV NOW ONE Stop: 12/16/21 16:20 Last Infusion: 12/16/21 17:56 Dose: 0 mls/hr Documented By: Admin: 12/16/21 14:12 Dose: 593 mls/hr Documented By: HUSDON Piperacillin Sod/Tazobactam (Sod 4.5 gm/ Sodium Chloride) 100 mls @ 25 mls/hr IV Q8H [facility] Last Infusion: 12/17/21 03:03 Dose: 0 mls/hr Documented By: Admin: 12/16/21 23:00 Dose: 25 mls/hr Documented By: HUDSON Piperacillin Sod/Tazobactam (Sod 3.375 gm/ Sodium Chloride) 100 mls @ 25 mls/hr IV Q8H [facility] Last Infusion: 12/18/21 02:39 Dose: 0 mls/hr Documented By: Admin: 12/17/21 22:25 Dose: 25 mls/hr Documented By: Infusion: 12/17/21 19:53 Dose: 0 mls/hr Documented By: Admin: 12/17/21 15:41 Dose: 25 mls/hr Documented By: Infusion: 12/17/21 12:26 Dose: 0 mls/hr Documented By: Admin: 12/17/21 08:11 Dose: 25 mls/hr Documented By: MIKEL Sodium Chloride (Normal Saline 0.9%) 1,000 mls @ 1,000 mls/hr IV BOLUS ONE Stop: 12/17/21 10:31 Last Infusion: 12/17/21 12:26 Dose: 0 mls/hr Documented By: Admin: 12/17/21 10:19 Dose: 1,000 mls/hr Documented By: MIKEL Ketorolac Tromethamine (Ketorolac 30 Mg/Ml Vial) 15 mg IV NOW ONE Stop: 12/16/21 13:32 Last Admin: 12/16/21 14:08 Dose: 15 mg Documented By: HUDSON Mirtazapine (Mirtazapine 15 Mg Tablet) 15 mg PO DAILY [facility] Last Admin: 12/17/21 09:30 Dose: 15 mg Documented By: MIKEL Morphine Sulfate (Morphine 4 Mg/Ml Inj) 4 mg IV NOW ONE Stop: 12/16/21 18:30 Last Admin: 12/16/21 19:01 Dose: 4 mg Documented By: HUDSON Morphine Sulfate (Morphine 4 Mg/Ml Inj) 4 mg IV NOW ONE Stop: 12/17/21 20:53 Last Admin: 12/17/21 21:01 Dose: 4 mg Documented By: HUDSON Ondansetron HCl (Ondansetron 4 Mg/2 Ml Inj) 4 mg IV NOW ONE Stop: 12/16/21 18:30 Last Admin: 12/16/21 19:01 Dose: 4 mg Documented By: HUDSON Ondansetron HCl (Ondansetron 4 Mg/2 Ml Inj) 4 mg IV NOW ONE Stop: 12/17/21 20:54 Last Admin: 12/17/21 21:01 Dose: 4 mg Documented By: HUDSON Reevaluation(s) Reevaluation #2: December 18, 2021 at 6 am, patient has been transferred to [facility] this morning without any event. Time: 06:18 Consultations Additional Consultation(s): December 18, 2021 at 1:50 a.m.. I spoke with [facility], dr bowman, hospitalist, will admit patient/accept patient Vital Signs Vital signs: Vital Signs - 8 hr 12/18/21 05:29 12/17/21 23:30 12/18/21 00:00 Temperature 98.5 F Pulse Rate 78 Respiratory Rate 19 Blood Pressure 133/63 Pulse Oximetry 95 12/18/21 00:00 12/18/21 00:30 12/18/21 01:00 Temperature Pulse Rate 85 80 Respiratory Rate 20 18 Blood Pressure 101/59 L Pulse Oximetry 96 95 12/18/21 01:00 12/18/21 01:35 12/18/21 01:37 Temperature Pulse Rate 126 H 130 H Respiratory Rate 19 Blood Pressure 116/54 L Pulse Oximetry 96 92 12/18/21 01:37 12/18/21 02:00 12/18/21 02:30 Temperature Pulse Rate 88 86 131 H Respiratory Rate 22 27 H 21 Blood Pressure Pulse Oximetry 98 96 96 12/18/21 03:00 12/18/21 03:30 12/18/21 04:00 Temperature Pulse Rate 78 73 Respiratory Rate 19 19 Blood Pressure 96/52 L Pulse Oximetry 96 95 12/18/21 04:00 12/18/21 04:30 12/18/21 05:00 Temperature Pulse Rate 77 79 79 Respiratory Rate 21 19 18 Blood Pressure Pulse Oximetry 95 95 95 12/18/21 05:25 12/18/21 05:26 Temperature Pulse Rate 68 Respiratory Rate 20 Blood Pressure 89/53 L Pulse Oximetry 95 <Salome Seals MD - Last Filed: 12/18/21 07:25> Orders Ordered: Discontinued Medications Atorvastatin Calcium (Atorvastatin 20 Mg Tablet) 20 mg PO DAILY [facility] Last Admin: 12/17/21 09:21 Dose: Not Given Documented By: MIKEL Piperacillin Sod/Tazobactam (Sod 4.5 gm/ Sodium Chloride) 100 mls @ 200 mls/hr IV NOW ONE Stop: 12/16/21 13:22 Last Infusion: 12/16/21 16:03 Dose: 0 mls/hr Documented By: Admin: 12/16/21 15:25 Dose: 200 mls/hr Documented By: HUDSON Sodium Chloride (Normal Saline 0.9%) 1,779 mls @ 593 mls/hr 30 ml/kg infuse over 3 hr (1779 ml) IV NOW ONE Stop: 12/16/21 16:20 Last Infusion: 12/16/21 17:56 Dose: 0 mls/hr Documented By: Admin: 12/16/21 14:12 Dose: 593 mls/hr Documented By: HUDSON Piperacillin Sod/Tazobactam (Sod 4.5 gm/ Sodium Chloride) 100 mls @ 25 mls/hr IV Q8H [facility] Last Infusion: 12/17/21 03:03 Dose: 0 mls/hr Documented By: Admin: 12/16/21 23:00 Dose: 25 mls/hr Documented By: HUDSON Piperacillin Sod/Tazobactam (Sod 3.375 gm/ Sodium Chloride) 100 mls @ 25 mls/hr IV Q8H [facility] Last Infusion: 12/18/21 02:39 Dose: 0 mls/hr Documented By: Admin: 12/17/21 22:25 Dose: 25 mls/hr Documented By: Infusion: 12/17/21 19:53 Dose: 0 mls/hr Documented By: Admin: 12/17/21 15:41 Dose: 25 mls/hr Documented By: Infusion: 12/17/21 12:26 Dose: 0 mls/hr Documented By: Admin: 12/17/21 08:11 Dose: 25 mls/hr Documented By: MIKEL Sodium Chloride (Normal Saline 0.9%) 1,000 mls @ 1,000 mls/hr IV BOLUS ONE Stop: 12/17/21 10:31 Last Infusion: 12/17/21 12:26 Dose: 0 mls/hr Documented By: Admin: 12/17/21 10:19 Dose: 1,000 mls/hr Documented By: MIKEL Ketorolac Tromethamine (Ketorolac 30 Mg/Ml Vial) 15 mg IV NOW ONE Stop: 12/16/21 13:32 Last Admin: 12/16/21 14:08 Dose: 15 mg Documented By: HUDSON Mirtazapine (Mirtazapine 15 Mg Tablet) 15 mg PO DAILY [facility] Last Admin: 12/17/21 09:30 Dose: 15 mg Documented By: MIKEL Morphine Sulfate (Morphine 4 Mg/Ml Inj) 4 mg IV NOW ONE Stop: 12/16/21 18:30 Last Admin: 12/16/21 19:01 Dose: 4 mg Documented By: HUDSON Morphine Sulfate (Morphine 4 Mg/Ml Inj) 4 mg IV NOW ONE Stop: 12/17/21 20:53 Last Admin: 12/17/21 21:01 Dose: 4 mg Documented By: HUDSON Ondansetron HCl (Ondansetron 4 Mg/2 Ml Inj) 4 mg IV NOW ONE Stop: 12/16/21 18:30 Last Admin: 12/16/21 19:01 Dose: 4 mg Documented By: HUDSON Ondansetron HCl (Ondansetron 4 Mg/2 Ml Inj) 4 mg IV NOW ONE Stop: 12/17/21 20:54 Last Admin: 12/17/21 21:01 Dose: 4 mg Documented By: HUDSON Reevaluation(s) Reevaluation #1: Progress note 12/17/21 [address] Dr Seals Chart is reviewed, patient seen and examined She is adjusting to the news from the CT scans and scans, concerns and probable diagnosis are again reviewed with her. Physical exam: Blood pressure 99/60, heart rate 136, respiratory rate of 26, afebrile at 96.9, 97% on room air Lungs slightly diminished the right side, no wheeze Cardiac exam: Minor tachycardia she has a 3/6 systolic ejection murmur Abdomen: Benign Plan: Probable left lung cancer new diagnosis widely metastatic with postobstructive pneumonia. -currently on Zosyn. Will add a lactate this morning and a L of fluid. I am somewhat concerned that her vital signs are increasing was slightly lower blood pressure and mild tachycardia. Regarding the cancer itself: -care is reviewed with , [facility]. He felt that admission to [facility] could be safe. She needs biopsy diagnosis which could be done with Interventional Radiology, thoracic surgery or pulmonary with the bronchoscopy. Scans are independently reviewed with Radiology this morning. She may need a stent through the bronchus if possible and may benefit from radiation treatment to the bronchus to help open that up. 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 Not currently leaking/bleading If beds are not available Mauro will continue to contact other hospitals. She is a [facility] patient will discuss with them as well. She continues to process all of the information quite appropriately with appropriate questions. Salome Seals Vital Signs Vital signs: Vital Signs - 8 hr 12/18/21 05:29 12/17/21 23:30 12/18/21 00:00 Temperature 98.5 F Pulse Rate 78 Respiratory Rate 19 Blood Pressure 133/63 Pulse Oximetry 95 12/18/21 00:00 12/18/21 00:30 12/18/21 01:00 Temperature Pulse Rate 85 80 Respiratory Rate 20 18 Blood Pressure 101/59 L Pulse Oximetry 96 95 12/18/21 01:00 12/18/21 01:35 12/18/21 01:37 Temperature Pulse Rate 126 H 130 H Respiratory Rate 19 Blood Pressure 116/54 L Pulse Oximetry 96 92 12/18/21 01:37 12/18/21 02:00 12/18/21 02:30 Temperature Pulse Rate 88 86 131 H Respiratory Rate 22 27 H 21 Blood Pressure Pulse Oximetry 98 96 96 12/18/21 03:00 12/18/21 03:30 12/18/21 04:00 Temperature Pulse Rate 78 73 Respiratory Rate 19 19 Blood Pressure 96/52 L Pulse Oximetry 96 95 12/18/21 04:00 12/18/21 04:30 12/18/21 05:00 Temperature Pulse Rate 77 79 79 Respiratory Rate 21 19 18 Blood Pressure Pulse Oximetry 95 95 95 12/18/21 05:25 12/18/21 05:26 Temperature Pulse Rate 68 Respiratory Rate 20 Blood Pressure 89/53 L Pulse Oximetry 95 MDM - Abdominal Pain <Rachel Ham, - Last Filed: 12/20/21 07:26> Lab Data Result diagrams: 12/17/21 07:17 12/17/21 07:17 Labs: Lab Results 12/16/21 12/16/21 12/16/21 Range/Units 10:30 10:30 10:30 WBC 23.9 H (4.5-11.0) X10^3/uL RBC 3.25 L (4.0-5.2) X10^6/uL Hgb 10.0 L (12.0-16.0) g/dL Hct 29.0 L (36-46) % MCV 89.3 (80-100) fL MCH 30.7 (26-34) PG MCHC 34.4 (30-36) % RDW 12.7 (11.6-14.8) % Plt Count 210 (150-400) X10^3/uL Neut % (Auto) 81.7 H (50-75) % Lymph % (Auto) 7.5 L (25-40) % [place] % (Auto) 10.6 (3-14) % Eos % (Auto) 0.1 L (2-4) % Baso % (Auto) 0.1 (0-2) % Neut # (Auto) 59136 H (2536-6633) /uL Lymph # (Auto) 1800 (1128-4374) /uL [place] # (Auto) 2500 H (0-900) /uL Eos # (Auto) 0 (0-450) /uL Baso # (Auto) 0 (0-100) /uL PT 14.1 H (10.1-12.7) SECONDS INR 1.2 (0.9-1.3) APTT 25 L (26-36) SECONDS Sodium 129 L (137-145) mmol/L Potassium 3.7 (3.4-5.1) mmol/L Chloride 92 L (98-107) mmol/L Carbon Dioxide 26 (22-32) mmol/L BUN 18 H (7-17) mg/dL Creatinine 0.83 (0.52-1.04) mg/dL Estimated GFR > 60 (>60) mL/min BUN/Creatinine Ratio 21.7 (6-22) Glucose 110 (80-110) mg/dL Lactate (0.7-2.1) mmol/L Calcium 9.3 (8.4-10.2) mg/dL Total Bilirubin 0.7 (0.2-1.3) mg/dL AST 24 (14-36) IU/L ALT 16 (<35) IU/L Alkaline Phosphatase 105 (38-126) U/L Total Protein 7.8 (6.3-8.2) g/dL Albumin 4.2 (3.5-5.0) g/dL Globulin 3.6 (1.7-4.1) g/dL Albumin/Globulin Ratio 1.2 (1.0-2.8) Lipase 79 (23-300) U/L Urine RBC (0-5/HPF) Urine WBC (0-5/HPF) Ur Squamous Epith Cells (0-5/HPF) Urine Bacteria (None) Ur Culture Indicated? SARS-CoV-2 (PCR) (Negative) 12/16/21 12/16/21 12/16/21 Range/Units 10:30 15:06 16:43 WBC (4.5-11.0) X10^3/uL RBC (4.0-5.2) X10^6/uL Hgb (12.0-16.0) g/dL Hct (36-46) % MCV (80-100) fL MCH (26-34) PG MCHC (30-36) % RDW (11.6-14.8) % Plt Count (150-400) X10^3/uL Neut % (Auto) (50-75) % Lymph % (Auto) (25-40) % [place] % (Auto) (3-14) % Eos % (Auto) (2-4) % Baso % (Auto) (0-2) % Neut # (Auto) (6398-0986) /uL Lymph # (Auto) (5440-6285) /uL [place] # (Auto) (0-900) /uL Eos # (Auto) (0-450) /uL Baso # (Auto) (0-100) /uL PT (10.1-12.7) SECONDS INR (0.9-1.3) APTT (26-36) SECONDS Sodium (137-145) mmol/L Potassium (3.4-5.1) mmol/L Chloride (98-107) mmol/L Carbon Dioxide (22-32) mmol/L BUN (7-17) mg/dL Creatinine (0.52-1.04) mg/dL Estimated GFR (>60) mL/min BUN/Creatinine Ratio (6-22) Glucose (80-110) mg/dL Lactate 1.6 (0.7-2.1) mmol/L Calcium (8.4-10.2) mg/dL Total Bilirubin (0.2-1.3) mg/dL AST (14-36) IU/L ALT (<35) IU/L Alkaline Phosphatase (38-126) U/L Total Protein (6.3-8.2) g/dL Albumin (3.5-5.0) g/dL Globulin (1.7-4.1) g/dL Albumin/Globulin Ratio (1.0-2.8) Lipase (23-300) U/L Urine RBC 0-1/hpf (0-5/HPF) Urine WBC 1-5/hpf (0-5/HPF) Ur Squamous Epith Cells 1-5 /hpf (0-5/HPF) Urine Bacteria None seen (None) Ur Culture Indicated? Cult not indicated SARS-CoV-2 (PCR) Negative (Negative) 12/17/21 12/17/21 12/17/21 Range/Units 07:17 07:17 10:10 WBC 16.8 H (4.5-11.0) X10^3/uL RBC 2.72 L (4.0-5.2) X10^6/uL Hgb 8.5 L (12.0-16.0) g/dL Hct 24.1 L (36-46) % MCV 88.7 (80-100) fL MCH 31.2 (26-34) PG MCHC 35.1 (30-36) % RDW 12.6 (11.6-14.8) % Plt Count 190 (150-400) X10^3/uL Neut % (Auto) 78.6 H (50-75) % Lymph % (Auto) 8.7 L (25-40) % [place] % (Auto) 12.1 (3-14) % Eos % (Auto) 0.2 L (2-4) % Baso % (Auto) 0.4 (0-2) % Neut # (Auto) 68238 H (9140-1600) /uL Lymph # (Auto) 1500 (2338-7661) /uL [place] # (Auto) 2000 H (0-900) /uL Eos # (Auto) 0 (0-450) /uL Baso # (Auto) 100 (0-100) /uL PT (10.1-12.7) SECONDS INR (0.9-1.3) APTT (26-36) SECONDS Sodium 131 L (137-145) mmol/L Potassium 3.5 (3.4-5.1) mmol/L Chloride 99 (98-107) mmol/L Carbon Dioxide 24 (22-32) mmol/L BUN 11 (7-17) mg/dL Creatinine 0.55 (0.52-1.04) mg/dL Estimated GFR > 60 (>60) mL/min BUN/Creatinine Ratio 20.0 (6-22) Glucose 78 L (80-110) mg/dL Lactate 0.9 (0.7-2.1) mmol/L Calcium 8.2 L (8.4-10.2) mg/dL Total Bilirubin 0.8 (0.2-1.3) mg/dL AST 22 (14-36) IU/L ALT 14 (<35) IU/L Alkaline Phosphatase 81 (38-126) U/L Total Protein 6.3 (6.3-8.2) g/dL Albumin 3.2 L (3.5-5.0) g/dL Globulin 3.1 (1.7-4.1) g/dL Albumin/Globulin Ratio 1.0 (1.0-2.8) Lipase (23-300) U/L Urine RBC (0-5/HPF) Urine WBC (0-5/HPF) Ur Squamous Epith Cells (0-5/HPF) Urine Bacteria (None) Ur Culture Indicated? SARS-CoV-2 (PCR) (Negative) Point of care testing: Urine Dip Bedside Urine Glucose Negative Bedside Urine Bilirubin - Negative Bedside Urine Ketone - Negative Urine Specific [place] 1.02 Bedside Urine Occult Blood ++ Bedside Urine pH 6 Bedside Urine Protein ++ 100 Bedside Urine Urobilinogen - Negative Bedside Urine Nitrite - Negative Bedside Urine Leukocytes - Negative Esterase Imaging Data CT scan - chest: Radiologist's Impression: [place] [address] CT Scan Report Signed Patient: Ismael Suh MR#: [id number] : 1955 Acct:[id number] Age/Sex: 66 / F Date of Service: 12/16/21 Loc: ED Accession Number: [id number] ?? Procedure: CT angio chest PE protocol Ordering Provider: Rachel Ham D.O. PROCEDURE:? CT ANGIO CHEST PE PROTOCOL ? INDICATIONS:? abd pain, chest pain, recent scope ? TECHNIQUE:? After the administration of intravenous contrast, 2 mm thick sections acquired from the pulmonary apices to the posterior costophrenic angles.? 3-dimensional maximum intensity projection (MIP) coronal and sagittal reformats were then acquired through the thorax.? For radiation dose reduction, the following was used:? automated exposure control, adjustment of mA and/or kV according to patient size.? ? COMPARISON:? None. ? FINDINGS:? Image quality:? Excellent.? ? Pulmonary arteries:? 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 ? Rest of the pulmonary arteries are normal in size, and demonstrate no intraluminal filling defects to suggest central pulmonary embolism.? ? Lungs and pleura:? There is a right upper lobe mass anterior medially measuring 3.7 x 2.5 cm, suspicious for primary lung cancer.? There is a endobronchial component within the right upper lobe bronchus, which is obstructed.? There is encasement and occlusion of the right upper lobe pulmonary artery by tumor compression or invasion. ? There is airspace opacity in the right upper lobe, likely secondary to postobstructive pneumonia. ? A 1.3 cm diameter cavitary nodule is seen in the right lower lobe suspicious for pulmonary metastasis. ? There is a small to moderate left pleural effusion.? Left basilar atelectasis is present. ? There is air lucency in the left lower lobe anterior medially, at the secondary to air trapping or lobar emphysema. ? Mediastinum:? Heart size is normal, without pericardial effusion.? There is moderate coronary artery calcification.? ? There is mediastinal or right hilar adenopathy, consistent with gretta metastasis.? For example, there is a right hilar gretta mass measuring 2.2 x 1.9.? There is a 1.4 x 2.5 cm precarinal lymph node. A 3.0 x 2.4 cm subcarinal lymph node is identified.? ? Thoracic aorta is normal in caliber and enhancement.? Esophagus is normal in caliber, without hiatal hernia.? ? Bones and chest wall:? No suspicious bony lesions.? Ribs and thoracic spine appear intact throughout.? Thyroid gland is unremarkable.? No axillary or supraclavicular adenopathy.? ? Abdomen:? Bilateral adrenal masses are present.? Please see separate CT abdomen and pelvis report for detail. ? IMPRESSION:? ? 1. No evidence for pulmonary embolism. 2. Occlusion of right upper lobe pulmonary artery by a large central lung mass. 3. A 3.7 x 2.5 cm mass in the right upper lobe, highly suspicious for primary lung cancer.? There is an endobronchial component extending into the right upper lobe bronchus. The mass is seen encasing the right upper lobe pulmonary artery causing right upper lobe pulmonary artery occlusion. 4. A 1.3 cm cavitary nodule in the right lower lobe, suspicious for pulmonary metastasis. 5. Moderate left pleural effusion.? There is left basilar atelectasis. 6. 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 ? ? Dictated by: Bernice Reyna M.D. on 12/16/2021 at 15:07 ? ? Approved by: Bernice Reyna M.D. on 12/16/2021 at 15:22?? CT scan - abdomen/pelvis: Radiologist's Impression: Ismael Suh??66??F??1955 ? Allergy/Adv: No Known Drug Allergies (More??) Close Chest CTA (Signed) Bernice Reyna - 12/16/21 Abdomen/Pelvis CT (Signed) Bernice Reyna - 12/16/21 DEXA Result 10/25/21 Mammogram Screening (Signed) Jason Lloyd - 10/25/21 Bone Densitometry 10/25/21 Abdominal Arterial Study US (Signed) Hellen Hoffman - 10/25/21 Mammogram Screening (Signed) Tony Teran - 10/22/19 Bone Densitometry 10/22/19 Echocardiogram Ultrasound (Signed) Morgan Gonzales - 08/16/19 EKG Rpt. 08/08/19 Mammogram, Additional Views (Signed) Henry Em - 01/11/18 Breast Ultrasound (Signed) Henry Em - 01/11/18 Mammogram Screening (Signed) Kym Hernández - 12/22/17 Abdomen Ultrasound (Signed) Pacheco Oliver - 10/06/17 Launch?[place] [address] CT Scan Report Signed Patient: Ismael Suh MR#: [id number] : 1955 Acct:[id number] Age/Sex: 66 / F Date of Service: 12/16/21 Loc: ED Accession Number: [id number] ?? Procedure: CT abdomen pelvis w con Ordering Provider: Rachel Ham D.O. PROCEDURE:? CT ABDOMEN PELVIS W CON ? INDICATIONS:? abd pain, had colonscopy ? TECHNIQUE:? After the administration of oral and IV contrast, axial sections were acquired from the lung bases to the pubic symphysis.? Coronal and sagittal reformats were performed.? For radiation dose reduction, the following was used:? automated exposure control, adjustment of mA and/or kV according to patient size. ? COMPARISON:? [facility], US, US ABD AORTA ANEURYSM SCREEN, 10/25/2021, 11:02.? [facility], CT, CT ANGIO CHEST PE PROTOCOL, 12/16/2021, 13:54. ? FINDINGS:? Image quality:? Excellent.? ? Lung bases:? Small to moderate left pleural effusion with left basilar atelectasis.? ? Heart:? No significant findings. ? ? ABDOMEN: Liver:? Unremarkable.? ? Gallbladder:? Unremarkable.? ? Biliary ducts:? Unremarkable.? ? Pancreas:? Unremarkable.? ? Spleen:? Unremarkable.? ? Adrenal Glands:? There is a large mass in the left adrenal measuring 11.0 x 6.9 cm.? A smaller mass is seen in the right adrenal gland measuring 5.3 x 3.8 cm.? The findings are most likely secondary to adrenal metastases.? ? Kidneys and Ureters:? Kidneys are normal in size and enhancement.? There is left perinephric stranding and fluid collection, presumably related to the large left adrenal mass.? No stones or hydronephrosis.? ? ? Stomach and Bowel:? Stomach, small bowel loops, and colon are normal in caliber.? Diverticulosis without acute diverticulitis. Peritoneum:? There is a small amount of intraperitoneal fluid.? No free air.? ? Ventral Wall: ? No hernia.? Abdominal Nodes:? There is mild retroperitoneal adenopathy suspicious for metastasis.? For example, there is a 1.2 x 1.5 cm left para-aortic lymph node. Vessels:? There is a large infrarenal abdominal aortic aneurysm measuring 5.1 x 5.2 cm extending to the aortic bifurcation.? Severe atherosclerotic calcifications of aorta and iliac arteries.? PELVIS: Pelvic Organs:? Unremarkable.? ? Bladder:? Bladder wall is mildly thickened.? ? Pelvic Nodes: No enlarged lymph nodes.? Miscellaneous: No inguinal hernias are seen. ? ? ? Bones:? Moderate levoscoliosis.? Degenerative changes in lumbar spine ? ? IMPRESSION:? ? 1. A huge left adrenal mass and a large right adrenal mass, most likely secondary to metastatic disease.? Primary adrenal neoplasm is a less likely differential diagnosis. 2. Retroperitoneal lymphadenopathy consistent with metastasis. 3. Diverticulosis without acute diverticulitis.? 4. Left perinephric stranding and fluid collection, presumably related to the large left adrenal mass.? 5. Infrarenal abdominal aortic aneurysm measuring 5.1 x 5.2 cm.? 6. A small to moderate amount of ascites. ? ? The result was discussed with Dr. Ham. ? Dictated by: Bernice Reyna M.D. on 12/16/2021 at 15:23 ? ? Approved by: Bernice Reyna M.D. on 12/16/2021 at 15:34?? ECG Data Attestation: I personally reviewed and interpreted this ECG as follows: Prior ECG tracings: available for review Interpretation: Sinus tachycardia, rate of 1 0 9p are 130 QRS is 76 and QTC of 452. No acute ST elevation patient has Q-wave in lead 3 not appreciated in other leads. No other acute ST changes appreciated. Patient has prior remotely with no acute changes. MDM Narrative Medical decision making narrative: This is a 66-year-old female with abdominal pain that has been increasing since colonoscopy on the 09 of December and is now radiating up to her left chest and shoulder and back she is tachycardic slightly hypotensive although she states her blood pressure can sometimes be low. She has been afebrile at home here. White count is 23 concerned about perforation with possible peritonitis causing her symptoms and/or pulmonary emboli or other causes. Patient was covered with Zosyn, 30 cc/kilos fluid bolus initiated, lactate and blood cultures were added on and CT abdomen pelvis as well as PE scan was obtained. Patient does not have pulmonary emboli but does have right-sided chest masses going into the bronchus and occluding the right pulmonary artery, patient also has 2 very large adrenal masses with lymphadenopathy and infrarenal aortic aneurysm. Aneurysm does a ppear stable with no acute bleed but patient does have abdominal as well as chest pain. Discussed with vascular surgery at [place] as well as [facility] and both state no acute surgical intervention at this time based on imaging and patient's need for workup of her newly found cancer. Spoke with Oncology at [place] but they do not have inpatient endocrine so they recommend trying other facilities. Calls out still to and may need regional hotline. Patient signed out to Dr. Bain while trying to transfer patient does have tachycardia, mild hypotension but patient is alert and been given permissive hypotension. 12/17/21 1pm Again calling facilities. 6pm [facility] calls to check back. Will talk with their CCU absorption plant operator/continuous process rotary drum tanner <Goran Bain MD - Last Filed: 12/18/21 06:19> Differential Diagnosis Differential diagnosis: Likely other (Lung cancer/metastatic cancer /postobstructive pneumonia.) Lab Data Labs: Lab Results 12/16/21 12/16/21 12/16/21 Range/Units 10:30 10:30 10:30 WBC 23.9 H (4.5-11.0) X10^3/uL RBC 3.25 L (4.0-5.2) X10^6/uL Hgb 10.0 L (12.0-16.0) g/dL Hct 29.0 L (36-46) % MCV 89.3 (80-100) fL MCH 30.7 (26-34) PG MCHC 34.4 (30-36) % RDW 12.7 (11.6-14.8) % Plt Count 210 (150-400) X10^3/uL Neut % (Auto) 81.7 H (50-75) % Lymph % (Auto) 7.5 L (25-40) % [place] % (Auto) 10.6 (3-14) % Eos % (Auto) 0.1 L (2-4) % Baso % (Auto) 0.1 (0-2) % Neut # (Auto) 07341 H (9193-4077) /uL Lymph # (Auto) 1800 (7552-9456) /uL [place] # (Auto) 2500 H (0-900) /uL Eos # (Auto) 0 (0-450) /uL Baso # (Auto) 0 (0-100) /uL PT 14.1 H (10.1-12.7) SECONDS INR 1.2 (0.9-1.3) APTT 25 L (26-36) SECONDS Sodium 129 L (137-145) mmol/L Potassium 3.7 (3.4-5.1) mmol/L Chloride 92 L (98-107) mmol/L Carbon Dioxide 26 (22-32) mmol/L BUN 18 H (7-17) mg/dL Creatinine 0.83 (0.52-1.04) mg/dL Estimated GFR > 60 (>60) mL/min BUN/Creatinine Ratio 21.7 (6-22) Glucose 110 (80-110) mg/dL Lactate (0.7-2.1) mmol/L Calcium 9.3 (8.4-10.2) mg/dL Total Bilirubin 0.7 (0.2-1.3) mg/dL AST 24 (14-36) IU/L ALT 16 (<35) IU/L Alkaline Phosphatase 105 (38-126) U/L Total Protein 7.8 (6.3-8.2) g/dL Albumin 4.2 (3.5-5.0) g/dL Globulin 3.6 (1.7-4.1) g/dL Albumin/Globulin Ratio 1.2 (1.0-2.8) Lipase 79 (23-300) U/L Urine RBC (0-5/HPF) Urine WBC (0-5/HPF) Ur Squamous Epith Cells (0-5/HPF) Urine Bacteria (None) Ur Culture Indicated? SARS-CoV-2 (PCR) (Negative) 12/16/21 12/16/21 12/16/21 Range/Units 10:30 15:06 16:43 WBC (4.5-11.0) X10^3/uL RBC (4.0-5.2) X10^6/uL Hgb (12.0-16.0) g/dL Hct (36-46) % MCV (80-100) fL MCH (26-34) PG MCHC (30-36) % RDW (11.6-14.8) % Plt Count (150-400) X10^3/uL Neut % (Auto) (50-75) % Lymph % (Auto) (25-40) % [place] % (Auto) (3-14) % Eos % (Auto) (2-4) % Baso % (Auto) (0-2) % Neut # (Auto) (6444-5416) /uL Lymph # (Auto) (6086-5747) /uL [place] # (Auto) (0-900) /uL Eos # (Auto) (0-450) /uL Baso # (Auto) (0-100) /uL PT (10.1-12.7) SECONDS INR (0.9-1.3) APTT (26-36) SECONDS Sodium (137-145) mmol/L Potassium (3.4-5.1) mmol/L Chloride (98-107) mmol/L Carbon Dioxide (22-32) mmol/L BUN (7-17) mg/dL Creatinine (0.52-1.04) mg/dL Estimated GFR (>60) mL/min BUN/Creatinine Ratio (6-22) Glucose (80-110) mg/dL Lactate 1.6 (0.7-2.1) mmol/L Calcium (8.4-10.2) mg/dL Total Bilirubin (0.2-1.3) mg/dL AST (14-36) IU/L ALT (<35) IU/L Alkaline Phosphatase (38-126) U/L Total Protein (6.3-8.2) g/dL Albumin (3.5-5.0) g/dL Globulin (1.7-4.1) g/dL Albumin/Globulin Ratio (1.0-2.8) Lipase (23-300) U/L Urine RBC 0-1/hpf (0-5/HPF) Urine WBC 1-5/hpf (0-5/HPF) Ur Squamous Epith Cells 1-5 /hpf (0-5/HPF) Urine Bacteria None seen (None) Ur Culture Indicated? Cult not indicated SARS-CoV-2 (PCR) Negative (Negative) 12/17/21 12/17/21 12/17/21 Range/Units 07:17 07:17 10:10 WBC 16.8 H (4.5-11.0) X10^3/uL RBC 2.72 L (4.0-5.2) X10^6/uL Hgb 8.5 L (12.0-16.0) g/dL Hct 24.1 L (36-46) % MCV 88.7 (80-100) fL MCH 31.2 (26-34) PG MCHC 35.1 (30-36) % RDW 12.6 (11.6-14.8) % Plt Count 190 (150-400) X10^3/uL Neut % (Auto) 78.6 H (50-75) % Lymph % (Auto) 8.7 L (25-40) % [place] % (Auto) 12.1 (3-14) % Eos % (Auto) 0.2 L (2-4) % Baso % (Auto) 0.4 (0-2) % Neut # (Auto) 62502 H (1868-4233) /uL Lymph # (Auto) 1500 (3784-6360) /uL [place] # (Auto) 2000 H (0-900) /uL Eos # (Auto) 0 (0-450) /uL Baso # (Auto) 100 (0-100) /uL PT (10.1-12.7) SECONDS INR (0.9-1.3) APTT (26-36) SECONDS Sodium 131 L (137-145) mmol/L Potassium 3.5 (3.4-5.1) mmol/L Chloride 99 (98-107) mmol/L Carbon Dioxide 24 (22-32) mmol/L BUN 11 (7-17) mg/dL Creatinine 0.55 (0.52-1.04) mg/dL Estimated GFR > 60 (>60) mL/min BUN/Creatinine Ratio 20.0 (6-22) Glucose 78 L (80-110) mg/dL Lactate 0.9 (0.7-2.1) mmol/L Calcium 8.2 L (8.4-10.2) mg/dL Total Bilirubin 0.8 (0.2-1.3) mg/dL AST 22 (14-36) IU/L ALT 14 (<35) IU/L Alkaline Phosphatase 81 (38-126) U/L Total Protein 6.3 (6.3-8.2) g/dL Albumin 3.2 L (3.5-5.0) g/dL Globulin 3.1 (1.7-4.1) g/dL Albumin/Globulin Ratio 1.0 (1.0-2.8) Lipase (23-300) U/L Urine RBC (0-5/HPF) Urine WBC (0-5/HPF) Ur Squamous Epith Cells (0-5/HPF) Urine Bacteria (None) Ur Culture Indicated? SARS-CoV-2 (PCR) (Negative) Point of care testing: Urine Dip Bedside Urine Glucose Negative Bedside Urine Bilirubin - Negative Bedside Urine Ketone - Negative Urine Specific [place] 1.02 Bedside Urine Occult Blood ++ Bedside Urine pH 6 Bedside Urine Protein ++ 100 Bedside Urine Urobilinogen - Negative Bedside Urine Nitrite - Negative Bedside Urine Leukocytes - Negative Esterase <Salome L Laursen, MD - Last Filed: 12/18/21 07:25> Lab Data Labs: Lab Results 12/16/21 12/16/21 12/16/21 Range/Units 10:30 10:30 10:30 WBC 23.9 H (4.5-11.0) X10^3/uL RBC 3.25 L (4.0-5.2) X10^6/uL Hgb 10.0 L (12.0-16.0) g/dL Hct 29.0 L (36-46) % MCV 89.3 (80-100) fL MCH 30.7 (26-34) PG MCHC 34.4 (30-36) % RDW 12.7 (11.6-14.8) % Plt Count 210 (150-400) X10^3/uL Neut % (Auto) 81.7 H (50-75) % Lymph % (Auto) 7.5 L (25-40) % [place] % (Auto) 10.6 (3-14) % Eos % (Auto) 0.1 L (2-4) % Baso % (Auto) 0.1 (0-2) % Neut # (Auto) 63220 H (0370-4915) /uL Lymph # (Auto) 1800 (6665-6527) /uL [place] # (Auto) 2500 H (0-900) /uL Eos # (Auto) 0 (0-450) /uL Baso # (Auto) 0 (0-100) /uL PT 14.1 H (10.1-12.7) SECONDS INR 1.2 (0.9-1.3) APTT 25 L (26-36) SECONDS Sodium 129 L (137-145) mmol/L Potassium 3.7 (3.4-5.1) mmol/L Chloride 92 L (98-107) mmol/L Carbon Dioxide 26 (22-32) mmol/L BUN 18 H (7-17) mg/dL Creatinine 0.83 (0.52-1.04) mg/dL Estimated GFR > 60 (>60) mL/min BUN/Creatinine Ratio 21.7 (6-22) Glucose 110 (80-110) mg/dL Lactate (0.7-2.1) mmol/L Calcium 9.3 (8.4-10.2) mg/dL Total Bilirubin 0.7 (0.2-1.3) mg/dL AST 24 (14-36) IU/L ALT 16 (<35) IU/L Alkaline Phosphatase 105 (38-126) U/L Total Protein 7.8 (6.3-8.2) g/dL Albumin 4.2 (3.5-5.0) g/dL Globulin 3.6 (1.7-4.1) g/dL Albumin/Globulin Ratio 1.2 (1.0-2.8) Lipase 79 (23-300) U/L Urine RBC (0-5/HPF) Urine WBC (0-5/HPF) Ur Squamous Epith Cells (0-5/HPF) Urine Bacteria (None) Ur Culture Indicated? SARS-CoV-2 (PCR) (Negative) 12/16/21 12/16/21 12/16/21 Range/Units 10:30 15:06 16:43 WBC (4.5-11.0) X10^3/uL RBC (4.0-5.2) X10^6/uL Hgb (12.0-16.0) g/dL Hct (36-46) % MCV (80-100) fL MCH (26-34) PG MCHC (30-36) % RDW (11.6-14.8) % Plt Count (150-400) X10^3/uL Neut % (Auto) (50-75) % Lymph % (Auto) (25-40) % [place] % (Auto) (3-14) % Eos % (Auto) (2-4) % Baso % (Auto) (0-2) % Neut # (Auto) (7583-7655) /uL Lymph # (Auto) (6383-9416) /uL [place] # (Auto) (0-900) /uL Eos # (Auto) (0-450) /uL Baso # (Auto) (0-100) /uL PT (10.1-12.7) SECONDS INR (0.9-1.3) APTT (26-36) SECONDS Sodium (137-145) mmol/L Potassium (3.4-5.1) mmol/L Chloride (98-107) mmol/L Carbon Dioxide (22-32) mmol/L BUN (7-17) mg/dL Creatinine (0.52-1.04) mg/dL Estimated GFR (>60) mL/min BUN/Creatinine Ratio (6-22) Glucose (80-110) mg/dL Lactate 1.6 (0.7-2.1) mmol/L Calcium (8.4-10.2) mg/dL Total Bilirubin (0.2-1.3) mg/dL AST (14-36) IU/L ALT (<35) IU/L Alkaline Phosphatase (38-126) U/L Total Protein (6.3-8.2) g/dL Albumin (3.5-5.0) g/dL Globulin (1.7-4.1) g/dL Albumin/Globulin Ratio (1.0-2.8) Lipase (23-300) U/L Urine RBC 0-1/hpf (0-5/HPF) Urine WBC 1-5/hpf (0-5/HPF) Ur Squamous Epith Cells 1-5 /hpf (0-5/HPF) Urine Bacteria None seen (None) Ur Culture Indicated? Cult not indicated SARS-CoV-2 (PCR) Negative (Negative) 12/17/21 12/17/21 12/17/21 Range/Units 07:17 07:17 10:10 WBC 16.8 H (4.5-11.0) X10^3/uL RBC 2.72 L (4.0-5.2) X10^6/uL Hgb 8.5 L (12.0-16.0) g/dL Hct 24.1 L (36-46) % MCV 88.7 (80-100) fL MCH 31.2 (26-34) PG MCHC 35.1 (30-36) % RDW 12.6 (11.6-14.8) % Plt Count 190 (150-400) X10^3/uL Neut % (Auto) 78.6 H (50-75) % Lymph % (Auto) 8.7 L (25-40) % [place] % (Auto) 12.1 (3-14) % Eos % (Auto) 0.2 L (2-4) % Baso % (Auto) 0.4 (0-2) % Neut # (Auto) 32463 H (1193-2199) /uL Lymph # (Auto) 1500 (9406-4557) /uL [place] # (Auto) 2000 H (0-900) /uL Eos # (Auto) 0 (0-450) /uL Baso # (Auto) 100 (0-100) /uL PT (10.1-12.7) SECONDS INR (0.9-1.3) APTT (26-36) SECONDS Sodium 131 L (137-145) mmol/L Potassium 3.5 (3.4-5.1) mmol/L Chloride 99 (98-107) mmol/L Carbon Dioxide 24 (22-32) mmol/L BUN 11 (7-17) mg/dL Creatinine 0.55 (0.52-1.04) mg/dL Estimated GFR > 60 (>60) mL/min BUN/Creatinine Ratio 20.0 (6-22) Glucose 78 L (80-110) mg/dL Lactate 0.9 (0.7-2.1) mmol/L Calcium 8.2 L (8.4-10.2) mg/dL Total Bilirubin 0.8 (0.2-1.3) mg/dL AST 22 (14-36) IU/L ALT 14 (<35) IU/L Alkaline Phosphatase 81 (38-126) U/L Total Protein 6.3 (6.3-8.2) g/dL Albumin 3.2 L (3.5-5.0) g/dL Globulin 3.1 (1.7-4.1) g/dL Albumin/Globulin Ratio 1.0 (1.0-2.8) Lipase (23-300) U/L Urine RBC (0-5/HPF) Urine WBC (0-5/HPF) Ur Squamous Epith Cells (0-5/HPF) Urine Bacteria (None) Ur Culture Indicated? SARS-CoV-2 (PCR) (Negative) Point of care testing: Urine Dip Bedside Urine Glucose Negative Bedside Urine Bilirubin - Negative Bedside Urine Ketone - Negative Urine Specific [place] 1.02 Bedside Urine Occult Blood ++ Bedside Urine pH 6 Bedside Urine Protein ++ 100 Bedside Urine Urobilinogen - Negative Bedside Urine Nitrite - Negative Bedside Urine Leukocytes - Negative Esterase MDM Narrative Medical decision making narrative: This is a 66-year-old female with abdominal pain that has been increasing since colonoscopy on the 09 of December and is now radiating up to her left chest and shoulder and back she is tachycardic slightly hypotensive although she states her blood pressure can sometimes be low. She has been afebrile at home here. White count is 23 concerned about perforation with possible peritonitis causing her symptoms and/or pulmonary emboli or other causes. Patient was covered with Zosyn, 30 cc/kilos fluid bolus initiated, lactate and blood cultures were added on and CT abdomen pelvis as well as PE scan was obtained. Patient does not have pulmonary emboli but does have right-sided chest masses going into the bronchus and occluding the right pulmonary artery, patient also has 2 very large adrenal masses with lymphadenopathy and infrarenal aortic aneurysm. Aneurysm does ap pear stable with no acute bleed but patient does have abdominal as well as chest pain. Discussed with vascular surgery at [place] as well as [facility] and both state no acute surgical intervention at this time based on imaging and patient's need for workup of her newly found cancer. Spoke with Oncology at [place] but they do not have inpatient endocrine so they recommend trying other facilities. Calls out still to and may need regional hotline. Patient signed out to Dr. Waller while trying to transfer patient does have tachycardia, mild hypotension but patient is alert and been given permissive hypotension. 12/17/21 1pm Again calling facilities. 6pm [facility] calls to check back. Will talk with their CCU absorption plant operator/continuous process rotary drum tanner Discharge Plan Departure Patient Disposition: [facility] Clinical Impression: Lung mass, Occlusion of right pulmonary artery, Pleural effusion on left, Mass of both adrenal glands, SIRS (systemic inflammatory response syndrome), Obstructive pneumonia Aortic aneurysm Qualifiers: Aortic location: abdominal aorta Abdominal aorta location: infrarenal aorta Presence of rupture: without rupture Qualified Code(s): I71.43 - Infrarenal abdominal aortic aneurysm, without rupture Prescriptions: No Action mirtazapine 15 mg tablet 15 mg PO DAILY Qty: 90 2RF simvastatin 20 mg tablet 20 mg PO BEDTIME Qty: 90 3RF Referrals: Misha Maher MD [Primary Care Provider] -
[2021-12-16] MEDS: KETOROLAC 30 MG/ML VIAL 15 MG IV (14:08)
[2021-12-16] MEDS: SODIUM CHLORIDE 0.9% 1,779 ML 593 ML IV (14:12)
[2021-12-16 14:22] LABS: Lactate (Lactic Acid) 1.6 mmol/L (0.7-2.1)
[2021-12-16] MEDS: PIPERACILLIN/TAZO 4.5 GM in SODIUM CHLORIDE 0.9% 100 ML IV ×2 (15:25→23:00)
[2021-12-16 15:44] LABS: Bacteria Urine None Seen; Culture Indicated Urine Cult Not Indicated; RBC Urine 0-1/HPF (0-5/HPF); Squamous Epithelial Cell Urine 1-5 /HPF (0-5/HPF); WBC Urine 1-5/HPF (0-5/HPF)
[2021-12-16 17:11] LABS: COVID19 -Nasal RAPID Negative (Negative)
[2021-12-16] MEDS: MORPHINE 4 MG/ML INJ IV (19:01)
[2021-12-16] MEDS: ONDANSETRON 4 MG/2 ML INJ IV (19:01)
[2021-12-17] VITALS (66 sets, daily range): BP systolic 70–119; BP diastolic 46–76; PULSE 78–136; RESP 14–32; O2SAT 93–100
--- NOTE | 2021-12-17 03:12 | PC.NURSE ---
0312 Patient able to ambulate to restroom independently with steady gait, however HR increases to 140's and patient 02 saturation drops to 92% on room air. She reports feeling SOB with exertion. HR decreases into 80's once returned to hospital bed.
[2021-12-17 07:37] LABS: Add Manual Diff / Slide Review NO; Basophils Absolute Auto 100 /uL (0-100); Basophils Percent Auto 0.4 % (0-2); Eosinophils Absolute Auto 0 /uL (0-450); Eosinophils Percent Auto 0.2 % (2-4); Hematocrit 24.1 % (36-46); Hemoglobin 8.5 g/dL (12.0-16.0); Lymphocytes Absolute Auto 1500 /uL (1100-4500); Lymphocytes Percent Auto 8.7 % (25-40); Mean Corpuscular HGB Conc 35.1 % (30-36); Mean Corpuscular Hemoglobin 31.2 PG (26-34); Mean Corpuscular Volume 88.7 fL (80-100); Monocytes Absolute Auto 2000 /uL (0-900); Monocytes Percent Auto 12.1 % (3-14); Neutrophils Absolute Auto 13200 /uL (1500-7000); Neutrophils Percent Auto 78.6 % (50-75); Platelet Count 190 X10^3/uL (150-400); Red Blood Cell Count 2.72 X10^6/uL (4.0-5.2); Red Cell Distribution Width 12.6 % (11.6-14.8); White Blood Cell Count 16.8 X10^3/uL (4.5-11.0)
[2021-12-17 07:45] LABS: Alanine Aminotransferase 14 IU/L (<35); Albumin 3.2 g/dL (3.5-5.0); Alkaline Phosphatase 81 U/L (38-126); Aspartate Aminotransferase 22 IU/L (14-36); Bilirubin Total 0.8 mg/dL (0.2-1.3); Blood Urea Nitrogen 11 mg/dL (7-17); Calcium 8.2 mg/dL (8.4-10.2); Carbon Dioxide 24 mmol/L (22-32); Chloride 99 mmol/L (98-107); Estimated Glomerular Filt Rate > 60 mL/min (>60); Globulin 3.1 g/dL (1.7-4.1); Glucose 78 mg/dL (80-110); HEMOLYSIS < 15 (0-50); Potassium 3.5 mmol/L (3.4-5.1); Sodium 131 mmol/L (137-145); Total Protein 6.3 g/dL (6.3-8.2)
[2021-12-17] MEDS: PIPERACILLIN/TAZO 3.375 GM in SODIUM CHLORIDE 0.9% 100 ML IV ×3 (08:11→22:25)
[2021-12-17] MEDS: MIRTAZAPINE 15 MG TABLET PO (09:30)
[2021-12-17] MEDS: SODIUM CHLORIDE 0.9% 1,000 ML 1000 ML IV (10:19)
[2021-12-17 10:42] LABS: Lactate (Lactic Acid) 0.9 mmol/L (0.7-2.1)
--- NOTE | 2021-12-17 12:11 | PC.NURSE ---
Pt aaox4/4, speaking in clear and coherent sentences, breathing even and unlabored, denies pain. Pt eating without difficulty, denies nausea at this time. Skin is pink, warm, dry without edema noted, capillary refill less than 2 seconds, no JVD noted. Pt moving limbs independently, full range of motion, normal strength against resistance. Pt ambulatory with x1 standby assist, unsteady gait at times, HR noted to increase to 140 upon ambulation, pt denies dizziness or SOB, recovers to 90's at rest.
[2021-12-17] MEDS: MORPHINE 4 MG/ML INJ IV (21:01)
[2021-12-17] MEDS: ONDANSETRON 4 MG/2 ML INJ IV (21:01)
[2021-12-18] VITALS (15 sets, daily range): BP systolic 89–133; BP diastolic 52–63; PULSE 68–131; RESP 18–27; TEMP 36.9; O2SAT 92–98
--- NOTE | 2021-12-18 02:14 | PC.NURSE ---
Julio gave approval, DR. Norberto Barriga
== END 2021-12-18 05:49 | disposition short-term general hospital (02) ==
PROVIDERS: Emergency Medicine; Emergency Provider Emergency Medicine; PCP Student in an Organized Health Care Education/Training Program
DX: I71.43 Infrarenal abdominal aortic aneurysm, without rupture (principal); I27.0 Primary pulmonary hypertension; E27.8 Other specified disorders of adrenal gland; R65.10 Systemic inflammatory response syndrome (SIRS) of non-infectious origin without acute organ dysfunction; R91.8 Other nonspecific abnormal finding of lung field; J90 Pleural effusion, not elsewhere classified; J18.9 Pneumonia, unspecified organism; R00.0 Tachycardia, unspecified; I95.9 Hypotension, unspecified; R06.02 Shortness of breath; R10.9 Unspecified abdominal pain; Z20.822 Contact with and (suspected) exposure to COVID-19
CPT/HCPCS: 36415; 71275; 74177; 80053; 81003; 81015; 83605; 83690; 85025; 85610; 85730; 87040; 87635; 93005; 93010; 96365; 96366; 96375; 96376; 99285; C9803; J1885; J2270; J2405; J2543; Q9967